=== PATIENT | male | born 1945 | race Two or more races ===

== ENCOUNTER → 2016-06-25 | Outpatient (CLI) | payer MEDICARE, OTHER ==
--- NOTE | 2016-06-25 17:30 | REP ---
LEFT LOWER EXTREMITY DOPPLER VENOUS ULTRASOUND: 06/25/2016. Clinical history: Left lower extremity pain. Evaluate for DVT. Comparison: None. Technique: The deep venous system of the left lower extremity is evaluated with villarreal scale imaging, compression ultrasound, color imaging and duplex Doppler interrogation. Examination from the groin through the popliteal fossa into the proximal calf. Findings: There is full compressibility from the common femoral vein in the inguinal region through the popliteal vein. Color imaging confirms patency throughout the course of the deep venous system. There is respiratory variation and augmented flow at all levels. Impression: 1. No Doppler venous ultrasound evidence of DVT in the left lower extremity. Signed by Juan Daniel James MD 06/25/2016 05:21 P
== END ==
LOC: M RAD 16:54
PROVIDERS: ATTEND Family Medicine
DX: M79.605 Pain in left leg (principal)

== ENCOUNTER → 2016-07-10 | Outpatient (REF) | payer MEDICARE, OTHER ==
[2016-07-10 11:04] LABS: BASO % 0.7 % (0.0-1.0); EOS # 0.1 K/mm3 (0.0-0.50); EOS % 2.4 % (0.0-3.0); LARGE UNSTAINED CELL # 0.2 K/mm3 (0.0-0.4); LARGE UNSTAINED CELL % 2.8 % (0.0-4.0); LYMPH # 1.9 K/mm3 (1.5-4.5); LYMPH % 32.4 % (24.0-44.0); MEAN CORPUSCULAR HEMOGLOBIN 30.3 pg (27.0-33.0); MEAN CORPUSCULAR HGB CONC 33.8 g/dl (32.0-36.5); MEAN CORPUSCULAR VOLUME 89.8 fl (80.0-96.0); MONO # 0.4 K/mm3 (0.0-0.8); MONO % 6.9 % (0.0-5.0); NEUTROPHILS # 2.9 K/mm3 (1.8-7.7); NEUTROPHILS % 54.7 % (36.0-66.0); PLATELET COUNT, AUTOMATED 195 k/mm3 (150-450); WHITE BLOOD COUNT 5.3 K/mm3 (4.0-10.0)
[2016-07-10 11:32] LABS: ALKALINE PHOSPHATASE 82 U/L (45-117); ALT/SGPT 33 U/L (12-78); ANION GAP 7 MEQ/L (8-16); AST/SGOT 19 U/L (15-37); BILIRUBIN,TOTAL 0.5 MG/DL (0.2-1.0); BLOOD UREA NITROGEN 30 MG/DL (7-18); CALCIUM LEVEL 8.5 MG/DL (8.8-10.2); CARBON DIOXIDE LEVEL 29 MEQ/L (21-32); CHLORIDE LEVEL 109 MEQ/L (98-107); CHOLESTEROL LEVEL 178 MG/DL (<200); CREATININE FOR GFR 0.91 MG/DL (0.70-1.30); GLOMERULAR FILTRATION RATE > 60.0 (>42); GLUCOSE, FASTING 120 MG/DL (83-110); POTASSIUM SERUM 4.5 MEQ/L (3.5-5.1); SODIUM LEVEL 145 MEQ/L (136-145); TRIGLYCERIDES LEVEL 212 MG/DL (<150)
[2016-07-10 11:33] LABS: ALBUMIN 3.5 GM/DL (3.2-5.2)
== END ==
LOC: M SFHCADAM 09:46
PROVIDERS: ATTEND Family Medicine
DX: Z12.11 Encounter for screening for malignant neoplasm of colon (principal); E66.9 Obesity, unspecified

== ENCOUNTER → 2016-10-27 | Outpatient (CLI) | payer MEDICARE, OTHER ==
[~2016-10-27] VITALS: Ht 180.3 cm; Wt 98.9 kg
[~2016-10-27] MED LIST: ALEV220C2 PO; ASPI81CH32 PO; LIDOCAINE 2% INJ 100 MG/5 ML SDV (FOR ANES.) As Ordered ONE; MULT1TAB10 PO; NS 1,000 ML IV ONE; PROPOFOL 500 MG/50 ML VIAL As Ordered ONE
--- NOTE | 2016-10-27 10:21 | ROOR ---
Patient Name: Rinku Syed Procedure Date: 10/27/2016 10:00 AM Date of : 1945 Age: 71 Room: [facility] Gender: Male Note Status: Finalized Procedure: Total Colonoscopy to Cecum Indications: Screening for colorectal malignant neoplasm, Last colonoscopy: 2002 Providers: Jaiden Gallagher MD Referring MD: Lissett Nunez DO Requesting Provider: Medicines: Monitored Anesthesia Care Complications: No immediate complications. Procedure: Pre-Anesthesia Assessment: - The heart rate, respiratory rate, oxygen saturations, blood pressure, adequacy of pulmonary ventilation, and response to care were monitored throughout the procedure. The Colonoscope was introduced through the anus and advanced to the cecum, identified by appendiceal orifice and ileocecal valve. The colonoscopy was performed without difficulty. The patient tolerated the procedure well. The quality of the bowel preparation was excellent. Findings: The perianal and digital rectal examinations were normal. Non-bleeding internal hemorrhoids were found during retroflexion. The hemorrhoids were small and Grade I (internal hemorrhoids that do not prolapse). Multiple small and large-mouthed diverticula were found in the recto-sigmoid colon, sigmoid colon and descending colon. The exam was otherwise without abnormality on direct and retroflexion views. Impression: - Non-bleeding internal hemorrhoids. - Diverticulosis in the recto-sigmoid colon, in the sigmoid colon and in the descending colon. - The examination was otherwise normal on direct and retroflexion views. - No specimens collected. - The exam was otherwise normal to the cecum. Recommendation: - Patient has a contact number available for emergencies. The signs and symptoms of potential delayed complications were discussed with the patient. Return to normal activities tomorrow. Written discharge instructions were provided to the patient. - High fiber diet. - Discharge patient to home. - Continue present medications. - Repeat colonoscopy for symptoms only. - Return to referring physician. - The findings and recommendations were discussed with the patient's family. Jaiden Gallagher MD Jaiden Gallagher MD 10/27/2016 10:20:41 AM This report has been signed electronically. Number of Addenda: 0 Note Initiated On: 10/27/2016 10:00 AM Estimated Blood Loss: Estimated blood loss: none.
[2016-10-27 10:55] VITALS: BP 115/63
== END | disposition home or self-care (01) ==
LOC: M OPP 08:53
PROVIDERS: ATTEND Internal Medicine Gastroenterology
DX: Z12.11 Encounter for screening for malignant neoplasm of colon (principal); K64.0 First degree hemorrhoids; K57.30 Diverticulosis of large intestine without perforation or abscess without bleeding; I38 Endocarditis, valve unspecified; M19.90 Unspecified osteoarthritis, unspecified site; M54.9 Dorsalgia, unspecified; R06.83 Snoring; G47.30 Sleep apnea, unspecified; Z85.46 Personal history of malignant neoplasm of prostate; Z79.82 Long term (current) use of aspirin; Z80.3 Family history of malignant neoplasm of breast

== ENCOUNTER → 2017-05-13 | Outpatient (REF) | payer MEDICARE, OTHER ==
[2017-05-13 14:50] LABS: BASO # 0.1 10^3/uL (0.0-0.2); BASO % 1.2 % (0.0-1.0); EOS # 0.1 10^3/uL (0.0-0.50); EOS % 2.3 % (0.0-3.0); HEMATOCRIT 45.8 % (42.0-52.0); HEMOGLOBIN 15.2 g/dl (14.0-18.0); IMMATURE GRANULOCYTE % 0.2 % (0-0); LYMPH # 1.5 10^3/uL (1.5-4.5); MEAN CORPUSCULAR HEMOGLOBIN 30.6 pg (27.0-33.0); MEAN CORPUSCULAR HGB CONC 33.2 g/dl (32.0-36.5); MEAN CORPUSCULAR VOLUME 92.3 fl (80.0-96.0); MONO # 0.5 10^3/uL (0.0-0.8); MONO % 9.4 % (0.0-5.0); NEUTROPHILS # 3.5 10^3/uL (1.8-7.7); NEUTROPHILS % 60.9 % (36.0-66.0); PLATELET COUNT, AUTOMATED 194 10^3/uL (150-450); RED BLOOD COUNT 4.96 10^6/uL (4.30-6.10); RED CELL DISTRIBUTION WIDTH 12.7 % (11.5-14.5); WHITE BLOOD COUNT 5.7 10^3/uL (4.0-10.0)
[2017-05-13 15:10] LABS: ALBUMIN 3.7 GM/DL (3.2-5.2); ALBUMIN/GLOBULIN RATIO 1.32 (1.00-1.93); ALKALINE PHOSPHATASE 91 U/L (45-117); ALT/SGPT 33 U/L (12-78); ANION GAP 5 MEQ/L (8-16); AST/SGOT 28 U/L (7-37); BILIRUBIN,TOTAL 0.5 MG/DL (0.2-1.0); BLOOD UREA NITROGEN 30 MG/DL (7-18); CALCIUM LEVEL 8.8 MG/DL (8.8-10.2); CARBON DIOXIDE LEVEL 31 MEQ/L (21-32); CHLORIDE LEVEL 110 MEQ/L (98-107); CREATININE FOR GFR 1.08 MG/DL (0.70-1.30); FREE T4 1.13 NG/DL (0.76-1.46); GLOMERULAR FILTRATION RATE > 60.0 (>42); GLUCOSE, FASTING 121 MG/DL (70-100); POTASSIUM SERUM 4.8 MEQ/L (3.5-5.1); SODIUM LEVEL 146 MEQ/L (136-145); THYROID STIMULATING HORMONE 0.782 uIU/ML (0.358-3.740); TOTAL PROTEIN 6.5 GM/DL (6.4-8.2)
[2017-05-13 15:54] LABS: ESTIMATED AVERAGE GLUCOSE 131 MG/DL (60-110); HEMOGLOBIN A1c 6.2 %
== END ==
LOC: M SFHCADAM 09:21
DX: R63.1 Polydipsia (principal); R42 Dizziness and giddiness; C61 Malignant neoplasm of prostate; Z79.899 Other long term (current) drug therapy
CPT/HCPCS: 84443

== ENCOUNTER → 2017-06-01 | Outpatient (CLI) | payer MEDICARE, OTHER | LOC: M RAD 17:07 | DX: I65.22 Occlusion and stenosis of left carotid artery (principal) | CPT/HCPCS: 93880 ==

== ENCOUNTER → 2018-02-01 | Outpatient (REF) | payer MEDICARE, OTHER ==
[2018-02-01 19:54] LABS: BASO # 0.1 10^3/uL (0.0-0.2); EOS # 0.1 10^3/uL (0.0-0.50); HEMATOCRIT 46.6 % (42.0-52.0); HEMOGLOBIN 15.4 g/dl (13.5-17.5); IMMATURE GRANULOCYTE % 0.2 % (0-3.0); LYMPH # 2.2 10^3/uL (1.5-4.5); LYMPH % 36.9 % (24.0-44.0); MEAN CORPUSCULAR HEMOGLOBIN 30.7 pg (27.0-33.0); MONO # 0.5 10^3/uL (0.0-0.8); MONO % 8.9 % (0.0-5.0); NEUTROPHILS # 3.1 10^3/uL (1.8-7.7); PLATELET COUNT, AUTOMATED 192 10^3/uL (150-450); RED BLOOD COUNT 5.01 10^6/uL (4.30-6.10); RED CELL DISTRIBUTION WIDTH 12.3 % (11.5-14.5); WHITE BLOOD COUNT 6.1 10^3/uL (4.0-10.0)
[2018-02-01 20:05] LABS: ALBUMIN 3.8 GM/DL (3.2-5.2); ALBUMIN/GLOBULIN RATIO 1.36 (1.00-1.93); ALKALINE PHOSPHATASE 80 U/L (45-117); ALT/SGPT 32 U/L (12-78); ANION GAP 7 MEQ/L (8-16); AST/SGOT 18 U/L (7-37); BILIRUBIN,TOTAL 0.6 MG/DL (0.2-1.0); BLOOD UREA NITROGEN 29 MG/DL (7-18); CALCIUM LEVEL 8.5 MG/DL (8.8-10.2); CARBON DIOXIDE LEVEL 28 MEQ/L (21-32); CHLORIDE LEVEL 109 MEQ/L (98-107); CREATININE FOR GFR 0.94 MG/DL (0.70-1.30); GLOMERULAR FILTRATION RATE > 60.0 (>42); GLUCOSE, FASTING 84 MG/DL (70-100); POTASSIUM SERUM 4.5 MEQ/L (3.5-5.1); SODIUM LEVEL 144 MEQ/L (136-145); TOTAL PROTEIN 6.6 GM/DL (6.4-8.2)
[2018-02-01 20:19] LABS: ESTIMATED AVERAGE GLUCOSE 117 MG/DL (60-110); HEMOGLOBIN A1c 5.7 %
== END ==
LOC: M SFHCADAM 15:43
DX: R53.83 Other fatigue (principal); R73.03 Prediabetes
CPT/HCPCS: 80053

== ENCOUNTER → 2018-03-12 | Outpatient (REF) | payer MEDICARE, OTHER | LOC: M LAB REF 13:26 | DX: N39.0 Urinary tract infection, site not specified (principal) | CPT/HCPCS: 87186 ==

== ENCOUNTER → 2018-04-25 | Outpatient (REF) | payer MEDICARE, OTHER ==
[~2018-04-25] MED LIST changes: -LIDOCAINE 2% INJ 100 MG/5 ML SDV (FOR ANES.) As Ordered ONE; -NS 1,000 ML IV ONE; -PROPOFOL 500 MG/50 ML VIAL As Ordered ONE
[2018-04-25 20:34] LABS: HEMOGLOBIN A1c 6.1 %
== END ==
LOC: M LABDRWAD 19:11
PROVIDERS: ATTEND Family Medicine
DX: R73.03 Prediabetes (principal)

== ENCOUNTER → 2018-05-20 | Outpatient (CLI) | payer MEDICARE, OTHER ==
--- NOTE | 2018-05-20 10:56 | REP ---
Clinical: Lower back pain. Technique: AP, lateral, bilateral oblique, flexion/extension and coned-down views of the lumbosacral spine. Findings: Advanced multilevel degenerative disc osteophyte complexes are appreciated including bulky bridging osteophytes, endplate sclerosis/heterogeneity, disc space narrowing and hypertrophic facet changes. No obvious acute fracture / compression injury. Mild chronic-appearing grade 1 anterolisthesis at the L5-S1 level noted. Impression: Advanced multilevel degenerative disc osteophyte complexes. Electronically Signed by Juma Cao MD 05/20/2018 10:47 A
== END ==
LOC: M ADAMS 10:27
PROVIDERS: ATTEND Family Medicine
DX: M51.36 Other intervertebral disc degeneration, lumbar region (principal); M25.78 Osteophyte, vertebrae; M43.17 Spondylolisthesis, lumbosacral region; M54.5 Low back pain
CPT/HCPCS: 72114; G0463

== ENCOUNTER → 2018-08-15 | Outpatient (REF) | payer MEDICARE, OTHER ==
[~2018-08-15] MED LIST changes: -ASPI81CH32 PO; +ASPI81CH33 PO
[2018-08-15 13:08] LABS: BLOOD UREA NITROGEN 37 MG/DL (7-18); CREATININE FOR GFR 0.88 MG/DL (0.70-1.30); GLOMERULAR FILTRATION RATE > 60.0 (>42)
== END ==
LOC: M LABDRWAD 12:17
PROVIDERS: ATTEND Physician Assistant Surgical
DX: M54.5 Low back pain (principal)

== ENCOUNTER → 2018-08-29 | Outpatient (CLI) | payer MEDICARE, OTHER ==
[2018-08-29 17:29] LABS: ALBUMIN 3.6 GM/DL (3.2-5.2); PERCENT SATURATION 38.2 % (19.7-50.0)
== END ==
LOC: M LAB 16:01
PROVIDERS: ATTEND Orthopaedic Surgery Adult Reconstructive Orthopaedic Surgery
DX: Z01.818 Encounter for other preprocedural examination (principal); M25.561 Pain in right knee; M17.11 Unilateral primary osteoarthritis, right knee; D63.8 Anemia in other chronic diseases classified elsewhere

== ENCOUNTER → 2018-11-11 | Outpatient (CLI) | payer MEDICARE, OTHER ==
--- NOTE | 2018-11-11 10:56 | REP ---
PA and lateral chest: Comparison is 07/29/2015. The lung wong are clear except for minor atelectasis in the lung bases. Cardiac size is normal. The marzena, mediastinum, skeletal structures are unchanged. The central marzena are enlarged, this is unchanged and may represent pulmonary hypertension. Impression: Minor bibasilar atelectasis. Chronic enlargement of the central marzena, possibly pulmonary hypertension, unchanged. Electronically Signed by Martin Kim MD 11/11/2018 10:48 A
== END ==
LOC: M ADAMS 10:25
PROVIDERS: ATTEND Family Medicine
DX: J98.11 Atelectasis (principal); R05 Cough
CPT/HCPCS: 71046; G0463

== ENCOUNTER → 2018-11-28 | Outpatient (REF) | payer MEDICARE, OTHER | LOC: M LAB REF 19:17 | PROVIDERS: ATTEND Physician Assistant | DX: N39.0 Urinary tract infection, site not specified (principal) ==

== ENCOUNTER → 2019-01-17 | Outpatient (REF) | payer MEDICARE, OTHER | LOC: M LAB REF 12:12 | PROVIDERS: ATTEND Physician Assistant Medical | DX: N39.0 Urinary tract infection, site not specified (principal) ==

== ENCOUNTER → 2019-01-20 | Outpatient (CLI) | payer MEDICARE, OTHER ==
--- NOTE | 2019-01-20 18:17 | REP ---
HISTORY: Hip pain. No trauma. COMPARISON: No priors. FINDINGS: The hip joint space is symmetric and relatively well maintained. There is no acute or destructive osseous lesion. Electronically Signed by Gino Guidry DO 01/23/2019 04:12 P
== END ==
LOC: M WUC 13:07
PROVIDERS: ATTEND Physician Assistant
DX: M25.552 Pain in left hip (principal)

== ENCOUNTER → 2019-05-03 | Outpatient (CLI) | payer MEDICARE, OTHER ==
--- NOTE | 2019-05-03 14:48 | REP ---
CHEST, TWO VIEWS: Comparison 11/11/2018. There are bibasilar fibrotic changes present without acute infiltrate. Heart is normal in size. There is calcification and tortuosity of the thoracic aorta. The mediastinal silhouette is unchanged. There are degenerative changes of the spine. IMPRESSION: No acute pulmonary disease. Electronically Signed by Martin Cota MD 05/03/2019 05:40 P
== END ==
LOC: M ADAMS 12:51
PROVIDERS: ATTEND Family Medicine
DX: R06.00 Dyspnea, unspecified (principal)
CPT/HCPCS: 71046; G0463

== ENCOUNTER → 2019-10-03 | Outpatient (CLI) | payer MEDICARE, OTHER ==
--- NOTE | 2019-10-03 16:44 | REP ---
REASON FOR EXAM: Constipation. Even though two views were obtained, not all of the abdomen and pelvis was included on this radiograph, which limits the exam. The imaged portions of the bowel loops show no gross abnormalities. There is no gross free air. The imaged portions of the bowel loops show the stool pattern to be within normal limits. Chronic changes are seen involving the imaged spine. IMPRESSION: As above. Electronically Signed by Gino Guidry DO 10/03/2019 05:05 P
== END ==
LOC: M ADAMS 15:59
PROVIDERS: ATTEND Physician Assistant
DX: K59.00 Constipation, unspecified (principal); R10.84 Generalized abdominal pain
CPT/HCPCS: 74018; G0463

== ENCOUNTER → 2019-10-17 | Outpatient (REF) | payer MEDICARE, OTHER | LOC: M LAB REF 17:13 | PROVIDERS: ATTEND Physician Assistant | DX: L57.0 Actinic keratosis (principal) | CPT/HCPCS: 11102; 17000; 17003; 88305; G0463 ==

== ENCOUNTER → 2020-03-19 | Outpatient (CLI) | payer MEDICARE, OTHER ==
--- NOTE | 2020-03-21 00:34 | ECWPNPC ---
PATIENT NAME: KAILA WALKER : 1945 GENDER: MALE VISIT DATE: 03/19/2020 DISCHARGE DATE: 03/19/20 1123 VISIT LOCKED DATE TIME: PHYSICIAN: NEO MORRISON PHYSICIAN PAGER NO: ACTIVE RESOURCE: NEO MORRISON REASON FOR APPOINTMENT 1. LOW BACK/HIP HISTORY OF PRESENT ILLNESS GENERAL: 74-YEAR-OLD GENTLEMAN REFERRED BY SOFI ADAN FOR EVALUATION AND CONSIDERATION OF RIGHT SACROILIAC JOINT INJECTION. HAS BEEN SUFFERING FROM RIGHT HIP/BUTTOCK PAIN OVER THE PAST 4-6 WEEKS. WAS DOING VERY WELL POST LUMBAR SURGERY DONE IN OCTOBER 2019. PAIN IS DECREASED AT REST. PAIN IS AGGRAVATED BY WALKING. PT WAS ORDERED BY [facility] OVER A MONTH AGO BUT PATIENT DID NOT COMPLETE THIS. DENIES CHANGES IN BOWEL OR BLADDER. DENIES BOWEL OR BLADDER INCONTINENCE. NO RECENT ILLNESS OR SUDDEN WEIGHT LOSS. - -. FALL RISK SCREENING: SCREENING :ONE FALL WITHOUT INJURY IN THE PAST YEAR PAIN SCREENING: PATIENT HAS A COMPLAINT OF ACUTE OR CHRONIC PAIN :YES LOCATION OF PAIN:LOW BACK, RIGHT HIP, LEG(S) INTENSITY OF PAIN (SCALE OF 1 TO 10):6 WHAT DOES YOUR PAIN FEEL LIKE:CONTINOUS, INTERMITTENT, SHOOTING RIGHT HIP PAIN IS WORSE WITH STANDING/WALKING DURATION:CONTINOUS PAIN IS INCREASED BY:ACTIVITIES, PROLONGED STANDING PAIN IS DECREASED BY:USE OF PAIN MEDICATIONS, OTHERS RESTING NURSING NOTE: - -. PAIN CENTER INTAKE QUESTIONS: DO YOU HAVE A HISTORY OF MRSA? :NO DO YOU TAKE A BLOOD THINNERS? :NO DO YOU HAVE ANY BLEEDING DISORDERS? :NO ANY NEW NUMBNESS OR WEAKNESS IN YOUR LEGS OR ARMS? :NO ANY PACEMAKER,DEFIBRILLATOR, OR DORSAL COLUMN STIMULATOR? :NO DO YOU HAVE ANY RASHES OR OPEN SORES? :NO ARE YOU ALLERGIC TO IV DYE? :NO ARE YOU DIABETIC? :NO ANY NEW PROBLEMS WITH YOUR MEDICATIONS? :NO HAVE YOU RECEIVED A VACCINE IN THE PAST 30 DAYS? :YES IF SO WHAT VACCINE AND WHEN? FLU VACCINE EARLY FEBRUARY DO YOU PLAN TO RECEIVE A VACCINE IN THE NEXT 21 DAYS? :NO DO YOU TAKE ANY IMMUNOSUPPRESSIVE MEDICATIONS? :NO ANY HISTORY OF SEIZURES? :NO ANY HISTORY OF CARDIAC ISSUES OR EVENTS? :NO DO YOU HAVE SLEEP APNEA? :YES DO YOU WEAR A CPAP?NO ANY RECENT HEAD INJURY? :NO DO YOU HAVE ANY NEW INFECTIONS? :NO IS THERE A CHANCE YOU COULD BE ? :NO ARE YOU BREAST FEEDING? :NO WHEN DID YOU LAST EAT? : - WHEN DID YOU LAST DRINK? : - WHAT DID YOU LAST DRINK? : - NAME OF PERSON DRIVING YOU HOME? : - DO YOU HAVE ANY OTHER QUESTIONS OR CONCERNS? : - CURRENT MEDICATIONS TAKING MULTIVITAMIN MEN - TABLET 1 TAB ORALLY DAILY TAKING TYLENOL 8 HOUR 650 MG TABLET EXTENDED RELEASE 1TABLETS NEEDED ORALLY EVERY 8 HRS TAKING MELOXICAM 15 MG TABLET TAKE ONE TABLET BY MOUTH EVERY DAY WITH FOOD ORAL TAKING MAGNESIUM CITRATE 1.745 GM/30ML SOLUTION 150 ML ORALLY ONCE TAKING ASPIRIN 81 81 MG TABLET DELAYED RELEASE 1 TABLET ORALLY ONCE A DAY NOT-TAKING ASPIRIN 81 MG TABLET CHEWABLE 1 TABLET ORALLY TWICE DAILY NOT-TAKING MAY HAVE - - CBD ORALLY 6 DAILY NOT-TAKING ALEVE 220 MG TABLET 1 TABLET NEEDED ORALLY BEDTIME MEDICATION LIST REVIEWED AND RECONCILED WITH THE PATIENT PAST MEDICAL HISTORY CARPAL TUNNEL SYNDROME PROSTATE CANCER, S/P PROSTATECTOMY, NOT TREATED WITH MEDICATION AUDRA, NOT REGULARLY USING CPAP ECHO WITH MILDLY DILATED AORTIC ROOT, MILD-MODERATE AORTIC INSUFFICIENCY, VERY MILD MITRAL INSUFFICIENCY, BORDERLINE LVH, IMPAIRED DIASTOLIC DYSFUNCTION, MILD PULMONARY HTN; WORSENING LV WALL THICKNESS AND DIASTOLIC DYSFUNCTION COLONOSCOPY WITH INTERNAL HEMORRHOIDS AND DIVERTICULOSIS (10/2016) -- CHATO CAROTID US WITH 16-49% NARROWING BILAT (05/2017) ALLERGIES N.K.D.A. SURGICAL HISTORY HERNIA X 7 ARTHROSCOPY ON RIGHT KNEE X 2 HERNIATED DISC LUMBAR BACK SURGERY LEFT LIGAMENT ON LEFT PINKY FINGER PROSTATE CANCER-PROSTATECTOMY 2006 RIGHT ROTATOR CUFF SURGERY CARPAL TUNNEL TRIGGER FINGER 3-17 COLONOSCOPY SHOWING DIVERTICULOSIS AND HEMORRHOIDS 10/2016 R KNEE REPLACEMENT 09-19-19 L1-2, L2-3 LAMINECTOMY (DR. CHO) 10/27/2019 FAMILY HISTORY FATHER: , IN HIS SLEEP MOTHER: , ALZHEIMER'S, PNEUMONIA SIBLINGS: ALIVE, OLDEST BROTHER WITH PARKINSON'S, BROTHER WITH NECK SURGERY, SISTER WITH ANKLE FRACTURE SON(S): ALIVE, DIAGNOSED WITH HYPERTENSION DAUGHTER(S): ALIVE 3 BROTHER(S) , 1 SISTER(S) - HEALTHY. 1 SON(S) , 1 DAUGHTER(S) - HEALTHY. DENIES FAMILY HX OF SKIN CANCER AND MELANOMA. SOCIAL HISTORY GENERAL: TOBACCO USE ARE YOU A:NONSMOKER LATEX QUESTIONNAIRE LATEX ALLERGY : HAVE YOU EVER DEVELOPED ANY TYPE OF REACTION AFTER HANDLING LATEX PRODUCTS SUCH RUBBER GLOVES, CONDOMS, DIAPHRAGMS, BALLOONS, SOCKS, OR UNDERWEAR?NO LATEX ALLERGY : HAVE YOU EVER DEVELOPED ANY TYPE OF REACTION DURING OR AFTER DENTAL APPOINTMENT, VAGINAL/RECTAL EXAMINATION, SURGICAL PROCEDURE, OR ANY OTHER EXPOSURE?NO LATEX RISK : HAVE YOU EVER HAD ANY DIFFICULTY BREATHING OR HIVES AFTER EATING OR HANDLING ANY FRUITS, OR VEGETABLES; SUCH KIWI, BANANAS, STONE FRUITS, OR CHESTNUTSNO LATEX RISK : DO YOU HAVE A PREVIOUS PERSONAL HISTORY OF MORE THAN NINE SURGERIES, SPINA BIFIDA, OR REPEATED CATHERIZATIONS? NO LATEX RISK : ARE YOU FREQUENTLY EXPOSED TO LATEX PRODUCTS IN YOUR OCCUPATION?NO DATE ASKED : 03/18/2020 BMI CARE GOAL FOLLOW-UP ABOVE NORMAL BMI FOLLOW-UPGIVING ENCOURAGEMENT TO EXERCISE ALCOHOL SCREENING DID YOU HAVE A DRINK CONTAINING ALCOHOL IN THE PAST YEAR?YES HOW MANY DRINKS DID YOU HAVE ON A TYPICAL DAY WHEN YOU WERE DRINKING IN THE PAST YEAR?1 OR 2 (0 POINTS) HOW OFTEN DID YOU HAVE A DRINK CONTAINING ALCOHOL IN THE PAST YEAR?MONTHLY OR LESS (1 POINT) POINTS1 INTERPRETATIONNEGATIVE RECREATIONAL DRUG USE DRUG USE?NO CAFFEINE CAFFEINE USE?NO SEXUAL HX HAD SEX IN THE LAST 12 MONTHS (VAGINAL, ORAL, OR ANAL)?NO HIV / HEP-C SCREENING HIV TEST OFFERED TO PATIENT:YES DATE OFFERED:07/12/2017 TEST ACCEPTED:NO HEP-C TEST OFFERED TO PATIENT:NO REASON:PATIENT DECLINED BROCHURE PROVIDED TO PATIENTNO EVANGELICAL NO JEW BELIEFS THAT WOULD IMPACT HEALTH CARE. LANGUAGE LANGUAGES SPOKEN:[employer]. LEARNING BARRIERS / SPECIAL NEEDS CHANGE FROM LAST VISIT?NO BARRIERS TO LEARNING?NO HEARING IMPAIRED?NO VISION IMPAIRED?YES :CORRECTIVE LENSES COGNITIVELY IMPAIRED?NO READINESS TO LEARN?YES LEARNING PREFERENCES?NO LEARNING CAPABILITIES PRESENT?YES EMOTIONAL BARRIERS?NO SPECIAL DEVICES?NO HEALTHCARE RISK CONTROL CONSULTANT NEEDED?NO DOMESTIC VIOLENCE NONE. 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 DIET: REGULAR. EXERCISE: WALKS. MARITAL STATUS: . OTHERS AT HOME: SIGNIFICANT OTHER. PAIN CLINIC PFS, CLERGY, PUBLIC HEALTH REFERRALS HAS THE PATIENT BEEN EDUCATED REGARDING HIS/HER PLAN OF CARE?YES HAS THE PATIENT BEEN EDUCATED REGARDING PAIN, THE RISK FOR PAIN, THE IMPORTANCE OF EFFECTIVE PAIN MANAGEMENT, AND THE PAIN ASSESSMENT PROCESS?YES ADVANCE DIRECTIVE ADVANCE DIRECTIVE DISCUSSED WITH PATIENT: HAS HCP AT HOME. INSTRUCTED TO BRING IN TO PAIN CENTER TO BE SCANNED IN. HOSPITALIZATION/MAJOR DIAGNOSTIC PROCEDURE SURGERY RELATED KNEE REPLACEMENT 10/05 REVIEW OF SYSTEMS CONSTITUTIONAL: ANY RECENT FEVER NO . CHILLS NO . WEIGHT CHANGE OF UNKNOWN REASONS NO . GASTROENTEROLOGY: NEW UNEXPLAINABLE CHANGES IN BOWEL CONTROL NO . CONSTIPATION NO . GENITOURINARY: ANY NEW CHANGE IN BLADDER CONTROL? NO . NEUROLOGY: NEW ONSET DIZZINESS OR NEUROLOGICAL CHANGES NOT MENTIONED NO . NEW NUMBNESS OR PAIN PATTERNS NOT MENTIONED AND PERTINENT TO TODAY'S VISIT NO . CARDIOLOGY: NEW CHEST PRESSURE NO . NEW CHEST PAIN NO . RESPIRATORY: UNEXPLAINABLE COUGH NO . NEW SHORTNESS OF BREATH NO . VITAL SIGNS WT 243.0 LBS, HT 71 IN, BMI 33.89 INDEX, BP 159/76 MM HG, HR 100 /MIN, TEMP 9\7.0, OXYGEN SAT % 94%, SAFE IN ENV? (Y/N) Y, NA INITIALS AW 1037, REVIEWED BY: VALDEZ. EXAMINATION GENERAL EXAMINATION: GENERAL ALERT,NO DISTRESS . PSYCH AFFECT NORMAL . FACE:UNREMARKABLE. NECK:NO LYMPHADENOPATHY, SUPPLE, . LUNGS: LUNG SOUNDS ARE CLEAR . HEART: HEART RATE REGULAR . MUSCULOSKELETAL: MST 5/5 BILAT. LOWER EXTREMITIES . LUMBAR: TENDERNESS BILAT. SIJ . ASSESSMENTS SACROILIITIS - M46.1 (PRIMARY) TREATMENT SACROILIITIS NOTES: DISCUSSED TREATMENT OPTIONS TO INCLUDE SACROILIAC JOINT BLOCK AND PHYSICAL THERAPY. POTENTIAL RISKS AND BENEFITS OF SACROILIAC JOINT BLOCK WERE REVIEWED. PATIENT WOULD LIKE TO TRY PHYSICAL THERAPY FIRST. PATIENT WILL SIGN RECORDS RELEASE TO OBTAIN MRI OF LS SPINE. FOLLOW-UP AT PAIN CLINIC IN 6-8 WEEKS. REFERRAL TO:PHYSICAL THERAPIST REASON:2XWK X 6 WKS, RIGHT SACROILIITIS/EVALUATE AND TREAT PROCEDURE CODES FA211 ESTABILISHED PATIENT [facility] CHARGE DISPOSITION & COMMUNICATION FOLLOW UP 6 WEEKS (REASON: FOLLOW-UP PHYSICAL THERAPY, REVIEW MRI L/S SPINE) ELECTRONICALLY SIGNED BY PRIYA GRACE ON 03/20/2020 AT 01:22 PM EST DISCLAIMER : THIS IS A VISIT SUMMARY EXTRACTED FROM THE [employer] CHART. IT IS NOT A COPY OF THE [employer] PROGRESS NOTE. ANGELI
== END ==
LOC: M PAIN 10:30
PROVIDERS: ATTEND Nurse Practitioner Family
DX: M46.1 Sacroiliitis, not elsewhere classified (principal); G47.33 Obstructive sleep apnea (adult) (pediatric); Z85.46 Personal history of malignant neoplasm of prostate; Z79.1 Long term (current) use of non-steroidal anti-inflammatories (NSAID); Z79.899 Other long term (current) drug therapy

== ENCOUNTER → 2020-03-20 | Outpatient (CLI) | payer MEDICARE, OTHER ==
--- NOTE | 2020-03-20 16:00 | REP ---
INDICATION: DYSPNEA. COMPARISON: 05/03/2019 TECHNIQUE: PA and lateral views FINDINGS: The superior mediastinal structures are midline. The cardiac silhouette is unremarkable in size, shape, and position. The diaphragmatic surfaces of the lungs are regular, and the costophrenic angles are clear. There are mild basilar fibrotic changes status ".. The imaged osseous structures are intact. IMPRESSION: There is no acute cardiopulmonary disease. <Electronically signed by Gino Guidry > 03/20/20 [id number]
[2020-03-21 11:44] LABS: BASO # 0.1 10^3/uL (0.0-0.2); EOS # 0.2 10^3/uL (0.0-0.5); EOS % 3.4 % (0.0-3.0); HEMATOCRIT 48.2 % (42.0-52.0); HEMOGLOBIN 15.7 g/dl (13.5-17.5); LYMPH # 2.5 10^3/uL (1.5-5.0); LYMPH % 39.5 % (24.0-44.0); MEAN CORPUSCULAR HEMOGLOBIN 29.8 pg (27.0-33.0); MEAN CORPUSCULAR HGB CONC 32.6 g/dl (32.0-36.5); MEAN CORPUSCULAR VOLUME 91.5 fl (80.0-96.0); MONO # 0.6 10^3/uL (0.0-0.8); MONO % 9.9 % (0.0-5.0); NEUTROPHILS # 2.9 10^3/uL (1.5-8.5); PLATELET COUNT, AUTOMATED 215 10^3/uL (150-450); RED BLOOD COUNT 5.27 10^6/uL (4.30-6.10); WHITE BLOOD COUNT 6.3 10^3/uL (4.0-10.0)
[2020-03-21 12:26] LABS: ALBUMIN 3.9 GM/DL (3.2-5.2); ALT/SGPT 35 U/L (12-78); BILIRUBIN,TOTAL 0.6 MG/DL (0.2-1.0); BLOOD UREA NITROGEN 38 MG/DL (7-18); CALCIUM LEVEL 9.2 MG/DL (8.8-10.2); CARBON DIOXIDE LEVEL 27 MEQ/L (21-32); CHLORIDE LEVEL 108 MEQ/L (98-107); CREATININE FOR GFR 1.05 MG/DL (0.70-1.30); GLOMERULAR FILTRATION RATE > 60.0 (>42); GLUCOSE, FASTING 132 MG/DL (70-100); NT-PRO BNP 40 PG/ML (<450); POTASSIUM SERUM 5.1 MEQ/L (3.5-5.1); SODIUM LEVEL 141 MEQ/L (136-145); TOTAL PROTEIN 6.8 GM/DL (6.4-8.2)
== END ==
LOC: M ADAMS 15:40
PROVIDERS: ATTEND Family Medicine
DX: R06.00 Dyspnea, unspecified (principal)
CPT/HCPCS: 36415; 71046; 80053; 83880; 85025; G0463

== ENCOUNTER → 2020-03-25 | Outpatient (CLI) | payer SELFPAY | LOC: M LABSMTC 17:19 | PROVIDERS: ATTEND Pediatrics | DX: Z20.828 Contact with and (suspected) exposure to other viral communicable diseases (principal) ==

== ENCOUNTER → 2020-03-28 | Outpatient (CLI) | payer MEDICARE, OTHER ==
[~2020-03-28] MED LIST changes: +ISOVUE-370 76% 100ML VIAL As Ordered ONE
--- NOTE | 2020-03-28 16:01 | REP ---
INDICATION: DYSPNEA. COMPARISON: None. TECHNIQUE: Contrast dose: 75 ML of Isovue [address] technique: Helical scanning is acquired and overlapping 1.5 mm and contiguous 3 mm axial images are reformatted. In addition, maximum intensity projection and multiplanar re-formation images are generated in sagittal and coronal imaging projections. FINDINGS: There is good opacification in the pulmonary arterial tree. There is no evidence of vessel cut off or filling defect to suggest pulmonary embolus. Homogeneous opacity is seen in the thoracic aorta. There is no evidence of aneurysm or dissection. Lung window settings demonstrate no evidence of infiltrate, significant atelectasis, mass, or pulmonary nodule. No pleural or pericardial effusion is seen. No hilar or mediastinal mass or adenopathy is observed. Vascular calcification is noted. The thoracic aorta is quite tortuous. In the upper abdomen, there is a 6.6 cm cyst in the upper pole of the right kidney. Visualized upper abdominal structures are otherwise unremarkable. IMPRESSION: No CT evidence of pulmonary embolus. Upper pole cyst right kidney. Otherwise no acute disease. <Electronically signed by Zain Mcfadden > 03/28/20 [id number]
== END ==
LOC: M RAD 15:19
PROVIDERS: ATTEND Family Medicine
DX: R06.00 Dyspnea, unspecified (principal); N28.1 Cyst of kidney, acquired
CPT/HCPCS: 71275; G0463; Q9967

== ENCOUNTER → 2020-04-30 | Outpatient (CLI) | payer MEDICARE, OTHER ==
[~2020-04-30] MED LIST changes: -ISOVUE-370 76% 100ML VIAL As Ordered ONE
--- NOTE | 2020-05-02 05:44 | ECWPNPC ---
PATIENT NAME: KAILA WALKER : 1945 GENDER: MALE VISIT DATE: 04/30/2020 DISCHARGE DATE: 04/30/20 1014 VISIT LOCKED DATE TIME: PHYSICIAN: NEO MORRISON PHYSICIAN PAGER NO: ACTIVE RESOURCE: NEO MORRISON REASON FOR APPOINTMENT 1. LOW BACK/HIP HISTORY OF PRESENT ILLNESS DEPRESSION SCREENING: PHQ-2 (2015 EDITION) LITTLE INTEREST OR PLEASURE IN DOING THINGS?SEVERAL DAYS FEELING DOWN, DEPRESSED, OR HOPELESS?NOT AT ALL TOTAL SCORE1 GENERAL: HERE FOR FOLLOW-UP AFTER INITIAL EVALUATION A FEW MONTHS AGO. IS ATTENDING PHYSICAL THERAPY. CONTINUES TO DO WELL WITH HOME STRETCHING AND PHYSICAL THERAPY. PAIN HAS IMPROVED SINCE INITIAL VISIT. HISTORY OF PAIN POST LUMBAR SURGERY IN OCTOBER 2019. HE IS NOT IN NEED OF INJECTIONS WE THOUGHT HE MAY NEED A SACROILIAC JOINT INJECTION- IF HE DID NOT RESPOND TO PHYSICAL THERAPY. OVERALL DOING VERY WELL. FALL RISK SCREENING: SCREENING :NO FALLS REPORTED IN THE LAST YEAR PAIN SCREENING: PATIENT HAS A COMPLAINT OF ACUTE OR CHRONIC PAIN :YES LOCATION OF PAIN:LOW BACK INTENSITY OF PAIN (SCALE OF 1 TO 10):2 WHAT DOES YOUR PAIN FEEL LIKE:SHOOTING DURATION:PERIODIC PAIN IS INCREASED BY:PROLONGED STANDING, OTHERS WALKING PAIN IS DECREASED BY:SITTING, OTHERS LAYING DOWN, HEATING PACK NURSING NOTE: -. PAIN CENTER INTAKE QUESTIONS: DO YOU HAVE A HISTORY OF MRSA? :YES 7 YEARS AGO DO YOU TAKE A BLOOD THINNERS? :NO DO YOU HAVE ANY BLEEDING DISORDERS? :NO ANY NEW NUMBNESS OR WEAKNESS IN YOUR LEGS OR ARMS? :YES DOWN RIGHT LEG ANY PACEMAKER,DEFIBRILLATOR, OR DORSAL COLUMN STIMULATOR? :NO DO YOU HAVE ANY RASHES OR OPEN SORES? :NO ARE YOU ALLERGIC TO IV DYE? :NO ARE YOU DIABETIC? :NO ANY NEW PROBLEMS WITH YOUR MEDICATIONS? :NO HAVE YOU RECEIVED A VACCINE IN THE PAST 30 DAYS? :NO DO YOU PLAN TO RECEIVE A VACCINE IN THE NEXT 21 DAYS? :YES IF SO WHAT VACCINE AND WHEN? COVID DO YOU NEED ANY PRESCRIPTION? :NO DO YOU TAKE ANY IMMUNOSUPPRESSIVE MEDICATIONS? :NO IS THERE A CHANCE YOU COULD BE ? :NO ARE YOU BREAST FEEDING? :NO CURRENT MEDICATIONS TAKING MULTIVITAMIN MEN - TABLET 1 TAB ORALLY DAILY TAKING TYLENOL 8 HOUR 650 MG TABLET EXTENDED RELEASE 1TABLETS NEEDED ORALLY EVERY 8 HRS, NOTES: NEEDED TAKING MELOXICAM 15 MG TABLET TAKE ONE TABLET BY MOUTH EVERY DAY WITH FOOD ORAL TAKING ASPIRIN 81 81 MG TABLET DELAYED RELEASE 1 TABLET ORALLY ONCE A DAY NOT-TAKING MAGNESIUM CITRATE 1.745 GM/30ML SOLUTION 150 ML ORALLY ONCE NOT-TAKING ASPIRIN 81 MG TABLET CHEWABLE 1 TABLET ORALLY TWICE DAILY NOT-TAKING MAY HAVE - - CBD ORALLY 6 DAILY NOT-TAKING ALEVE 220 MG TABLET 1 TABLET NEEDED ORALLY BEDTIME MEDICATION LIST REVIEWED AND RECONCILED WITH THE PATIENT PAST MEDICAL HISTORY CARPAL TUNNEL SYNDROME PROSTATE CANCER, S/P PROSTATECTOMY, NOT TREATED WITH MEDICATION AUDRA, NOT REGULARLY USING CPAP ECHO WITH MILDLY DILATED AORTIC ROOT, MILD-MODERATE AORTIC INSUFFICIENCY, VERY MILD MITRAL INSUFFICIENCY, BORDERLINE LVH, IMPAIRED DIASTOLIC DYSFUNCTION, MILD PULMONARY HTN; WORSENING LV WALL THICKNESS AND DIASTOLIC DYSFUNCTION COLONOSCOPY WITH INTERNAL HEMORRHOIDS AND DIVERTICULOSIS (10/2016) -- CHATO CAROTID US WITH 16-49% NARROWING BILAT (05/2017) ALLERGIES N.K.D.A. SURGICAL HISTORY HERNIA X 7 ARTHROSCOPY ON RIGHT KNEE X 2 HERNIATED DISC LUMBAR BACK SURGERY LEFT LIGAMENT ON LEFT PINKY FINGER PROSTATE CANCER-PROSTATECTOMY 2006 RIGHT ROTATOR CUFF SURGERY CARPAL TUNNEL TRIGGER FINGER 3-17 COLONOSCOPY SHOWING DIVERTICULOSIS AND HEMORRHOIDS 10/2016 R KNEE REPLACEMENT 09-19-19 L1-2, L2-3 LAMINECTOMY (DR. CHO) 10/27/2019 FAMILY HISTORY FATHER: , IN HIS SLEEP MOTHER: , ALZHEIMER'S, PNEUMONIA SIBLINGS: ALIVE, OLDEST BROTHER WITH PARKINSON'S, BROTHER WITH NECK SURGERY, SISTER WITH ANKLE FRACTURE SON(S): ALIVE, DIAGNOSED WITH HYPERTENSION DAUGHTER(S): ALIVE 3 BROTHER(S) , 1 SISTER(S) - HEALTHY. 1 SON(S) , 1 DAUGHTER(S) - HEALTHY. DENIES FAMILY HX OF SKIN CANCER AND MELANOMA. SOCIAL HISTORY GENERAL: TOBACCO USE ARE YOU A:NONSMOKER LATEX QUESTIONNAIRE LATEX ALLERGY : HAVE YOU EVER DEVELOPED ANY TYPE OF REACTION AFTER HANDLING LATEX PRODUCTS SUCH RUBBER GLOVES, CONDOMS, DIAPHRAGMS, BALLOONS, SOCKS, OR UNDERWEAR?NO LATEX ALLERGY : HAVE YOU EVER DEVELOPED ANY TYPE OF REACTION DURING OR AFTER DENTAL APPOINTMENT, VAGINAL/RECTAL EXAMINATION, SURGICAL PROCEDURE, OR ANY OTHER EXPOSURE?NO LATEX RISK : HAVE YOU EVER HAD ANY DIFFICULTY BREATHING OR HIVES AFTER EATING OR HANDLING ANY FRUITS, OR VEGETABLES; SUCH KIWI, BANANAS, STONE FRUITS, OR CHESTNUTSNO LATEX RISK : DO YOU HAVE A PREVIOUS PERSONAL HISTORY OF MORE THAN NINE SURGERIES, SPINA BIFIDA, OR REPEATED CATHERIZATIONS? NO LATEX RISK : ARE YOU FREQUENTLY EXPOSED TO LATEX PRODUCTS IN YOUR OCCUPATION?NO DATE ASKED : 04/30/2020 BMI CARE GOAL FOLLOW-UP ABOVE NORMAL BMI FOLLOW-UPGIVING ENCOURAGEMENT TO EXERCISE ALCOHOL SCREENING DID YOU HAVE A DRINK CONTAINING ALCOHOL IN THE PAST YEAR?YES HOW MANY DRINKS DID YOU HAVE ON A TYPICAL DAY WHEN YOU WERE DRINKING IN THE PAST YEAR?1 OR 2 (0 POINTS) HOW OFTEN DID YOU HAVE A DRINK CONTAINING ALCOHOL IN THE PAST YEAR?MONTHLY OR LESS (1 POINT) POINTS1 INTERPRETATIONNEGATIVE RECREATIONAL DRUG USE DRUG USE?NO CAFFEINE CAFFEINE USE?NO SEXUAL HX HAD SEX IN THE LAST 12 MONTHS (VAGINAL, ORAL, OR ANAL)?NO HIV / HEP-C SCREENING HIV TEST OFFERED TO PATIENT:YES DATE OFFERED:07/12/2017 TEST ACCEPTED:NO HEP-C TEST OFFERED TO PATIENT:NO REASON:PATIENT DECLINED BROCHURE PROVIDED TO PATIENTNO ZOROASTRIANISM NO ORTHODOXY BELIEFS THAT WOULD IMPACT HEALTH CARE. LANGUAGE LANGUAGES SPOKEN:[employer] EDUCATION [employer]. LEARNING BARRIERS / SPECIAL NEEDS CHANGE FROM LAST VISIT?NO BARRIERS TO LEARNING?NO HEARING IMPAIRED?NO VISION IMPAIRED?YES :CORRECTIVE LENSES COGNITIVELY IMPAIRED?NO READINESS TO LEARN?YES LEARNING PREFERENCES?NO LEARNING CAPABILITIES PRESENT?YES EMOTIONAL BARRIERS?NO SPECIAL DEVICES?NO PATHOLOGY TECH NEEDED?NO DOMESTIC VIOLENCE NONE. 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 DIET: REGULAR. EXERCISE: WALKS. MARITAL STATUS: . OTHERS AT HOME: SIGNIFICANT OTHER. PAIN CLINIC PFS, CLERGY, PUBLIC HEALTH REFERRALS HAS THE PATIENT BEEN EDUCATED REGARDING HIS/HER PLAN OF CARE?YES HAS THE PATIENT BEEN EDUCATED REGARDING PAIN, THE RISK FOR PAIN, THE IMPORTANCE OF EFFECTIVE PAIN MANAGEMENT, AND THE PAIN ASSESSMENT PROCESS?YES ADVANCE DIRECTIVE ADVANCE DIRECTIVE DISCUSSED WITH PATIENT: HAS HCP AT HOME. INSTRUCTED TO BRING IN TO PAIN CENTER TO BE SCANNED IN. HOSPITALIZATION/MAJOR DIAGNOSTIC PROCEDURE SURGERY RELATED KNEE REPLACEMENT 10/05 REVIEW OF SYSTEMS CONSTITUTIONAL: ANY RECENT FEVER NO . CHILLS NO . WEIGHT CHANGE OF UNKNOWN REASONS NO . GASTROENTEROLOGY: NEW UNEXPLAINABLE CHANGES IN BOWEL CONTROL NO . CONSTIPATION NO . GENITOURINARY: ANY NEW CHANGE IN BLADDER CONTROL? NO . NEUROLOGY: NEW ONSET DIZZINESS OR NEUROLOGICAL CHANGES NOT MENTIONED NO . NEW NUMBNESS OR PAIN PATTERNS NOT MENTIONED AND PERTINENT TO TODAY'S VISIT NO . CARDIOLOGY: NEW CHEST PRESSURE NO . NEW CHEST PAIN NO . RESPIRATORY: UNEXPLAINABLE COUGH NO . NEW SHORTNESS OF BREATH NO . VITAL SIGNS WT 247 LBS, HT 71 IN, BMI 34.45 INDEX, BP 140/75 MM HG, HR 94 /MIN, RR 18 /MIN, TEMP 96.6 F, OXYGEN SAT % 92, SAFE IN ENV? (Y/N) YES, NA INITIALS ANJUM.MIN BYRNE. EXAMINATION GENERAL EXAMINATION: GENERALAWAKE,ALERT ,PLEASANT . PSYCHAFFECT NORMAL . LUNGS:LUNG SEGAL ARE CLEAR TO AUSCULTATION BILATERALLY. GOOD MOVEMENT OF AIR . HEART:S1, S2 IN A REGULAR RATE AND RHYTHM. NO SIGNIFICANT MURMURS, RUBS OR GALLOPS NOTED . ASSESSMENTS SACROILIITIS - M46.1 (PRIMARY) TREATMENT SACROILIITIS NOTES: CONTINUE PHYSICAL THERAPY AND HOME STRETCHING EXERCISES. PATIENT WILL CALL IF NECESSARY FOR FOLLOW-UP. PROCEDURE CODES FA211 ESTABILISHED PATIENT [facility] CHARGE DISPOSITION & COMMUNICATION FOLLOW UP PATIENT WILL CALL IF NEEDED (REASON: LOW BACK PAIN WITH HISTORY OF IMPROVEMENT WITH PHYSICAL THERAPY. HISTORY OF LUMBAR SURGERY 11/06/2019) ELECTRONICALLY SIGNED BY PRIYA GRACE ON 05/01/2020 AT 02:20 PM EST DISCLAIMER : THIS IS A VISIT SUMMARY EXTRACTED FROM THE [employer] CHART. IT IS NOT A COPY OF THE [employer] PROGRESS NOTE. ANGELI
== END ==
LOC: M PAIN 09:30
PROVIDERS: ATTEND Nurse Practitioner Family
DX: M46.1 Sacroiliitis, not elsewhere classified (principal); G47.33 Obstructive sleep apnea (adult) (pediatric); Z86.14 Personal history of Methicillin resistant Staphylococcus aureus infection; Z96.651 Presence of right artificial knee joint; Z79.82 Long term (current) use of aspirin; Z79.899 Other long term (current) drug therapy

== ENCOUNTER 2020-08-05 17:57 | Emergency (ER) | payer MEDICARE, OTHER ==
[~2020-08-05] VITALS: Ht 175.3 cm; Wt 107.7 kg
[2020-08-05] MEDS ORDERED: MELO15TA28 (18:06)
--- NOTE | 2020-08-05 18:41 | REP ---
INDICATION: CHEST PAIN COMPARISON: 03/20/2020 TECHNIQUE: Portable AP view of the chest FINDINGS: The mediastinum and cardiac silhouette are stable and within normal limits for portable technique. The lung wong demonstrate chronic interstitial changes and chronic linear left basilar fibroatelectatic changes. No acute consolidation, effusion, or pneumothorax. Skeletal structures are intact. IMPRESSION: Chronic changes. No acute cardiopulmonary process appreciated. <Electronically signed by Juma Cao > 08/05/20 [id number]
[2020-08-05 18:52] LABS: BASO # 0.1 10^3/uL (0.0-0.2); BASO % 0.8 % (0.0-1.0); EOS % 0.6 % (0.0-3.0); HEMATOCRIT 45.6 % (42.0-52.0); HEMOGLOBIN 15.2 g/dl (13.5-17.5); LYMPH # 1.2 10^3/uL (1.5-5.0); LYMPH % 18.7 % (24.0-44.0); MEAN CORPUSCULAR HEMOGLOBIN 30.3 pg (27.0-33.0); MEAN CORPUSCULAR HGB CONC 33.3 g/dl (32.0-36.5); MONO # 0.6 10^3/uL (0.0-0.8); MONO % 8.8 % (2.0-8.0); NEUTROPHILS # 4.7 10^3/uL (1.5-8.5); NEUTROPHILS % 70.6 % (36.0-66.0); PLATELET COUNT, AUTOMATED 176 10^3/uL (150-450); RED BLOOD COUNT 5.01 10^6/uL (4.30-6.10); WHITE BLOOD COUNT 6.6 10^3/uL (4.0-10.0)
[2020-08-05 19:03] LABS: INR 1.04; PROTHROMBIN TIME 13.8 SECONDS (12.5-14.3)
[2020-08-05 19:24] LABS: ALBUMIN 3.8 GM/DL (3.2-5.2); ALT/SGPT 33 U/L (12-78); BILIRUBIN,DIRECT 0.3 MG/DL (0.0-0.2); BILIRUBIN,TOTAL 0.7 MG/DL (0.2-1.0); BLOOD UREA NITROGEN 34 MG/DL (7-18); CALCIUM LEVEL 9.4 MG/DL (8.8-10.2); CARBON DIOXIDE LEVEL 24 MEQ/L (21-32); CHLORIDE LEVEL 108 MEQ/L (98-107); CK-MB VALUE MASS 1.7 NG/ML (<3.6); CPK CREATINE PHOSPHOKINASE 123 U/L (39-308); CREATININE FOR GFR 0.82 MG/DL (0.70-1.30); FREE T4 1.14 NG/DL (0.76-1.46); GLOMERULAR FILTRATION RATE > 60.0 (>42); GLUCOSE, FASTING 107 MG/DL (70-100); LIPASE 98 U/L (73-393); MB/CK RELATIVE INDEX 1.38 (< OR =4); SODIUM LEVEL 141 MEQ/L (136-145); THYROID STIMULATING HORMONE 0.814 uIU/ML (0.358-3.740); TOTAL PROTEIN 6.6 GM/DL (6.4-8.2); TROPONIN I < 0.02 NG/ML (< 0.10)
[2020-08-05] MEDS ORDERED: NITROGLYCERIN 0.4 MG SUBL TABLET SL PRN (19:40)
[2020-08-05] MEDS ORDERED: ASPIRIN 81 MG CHEW TABLET PO ONE (19:40)
[2020-08-05] MEDS ORDERED: ISOVUE-370 76% 100ML VIAL As Ordered ONE (19:47)
--- NOTE | 2020-08-05 21:28 | REPVR ---
PROCEDURE INFORMATION: Exam: CTA Chest With Contrast Exam date and time: 08/05/2020 8:11 PM Age: 75 years old Clinical indication: Chest pain; Additional info: Central chest pain, ? HX of aneurysm TECHNIQUE: Imaging protocol: Computed tomographic angiography of the chest with contrast. 3D rendering (Not supervised by radiologist): MIP and/or 3D reconstructed images were created by the technologist. Radiation optimization: All CT scans at this facility use at least one of these dose optimization techniques: automated exposure control; mA and/or kV adjustment per patient size (includes targeted exams where dose is matched to clinical indication); or iterative reconstruction. Contrast material: ISOVUE 370; Contrast volume: 75 ml; Contrast route: INTRAVENOUS (IV); COMPARISON: CT ANGIO CHEST 03/28/2020 3:54 PM FINDINGS: Pulmonary arteries: There is opacification of the pulmonary arteries with no evidence of pulmonary embolus. Aorta: There is opacification of the aorta which appears intact. The aorta is tortuous and there is calcified plaque along the margins. Lungs: There is mild bibasilar atelectasis. Small calcified granuloma left lung. Pleural spaces: There is no evidence of pneumothorax or pleural effusion. Heart: Normal-sized heart with no pericardial effusion Lymph nodes: Unremarkable. No enlarged lymph nodes. Bones/joints: There is some osteophyte formation of the thoracic spine. Soft tissues: Unremarkable. IMPRESSION: The aorta is tortuous but appearing intact. Electronically signed by: Yogi Salcido On 08/05/2020 21:29:01 PM
[2020-08-05 22:19] LABS: CK-MB VALUE MASS < 1.0 NG/ML (<3.6); CPK CREATINE PHOSPHOKINASE 104 U/L (39-308); MB/CK RELATIVE INDEX 0.96 (< OR =4); TROPONIN I < 0.02 NG/ML (< 0.10)
--- NOTE | 2020-08-05 22:41 | ECGEPIP ---
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
--- NOTE | 2020-08-05 22:58 | ECGEPIP ---
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
[2020-08-05 23:15] VITALS: BP 136/62
== END 2020-08-05 23:23 | disposition home or self-care (01) ==
LOC: M ED 17:57
DX: M25.512 Pain in left shoulder (principal); R07.89 Other chest pain; I44.4 Left anterior fascicular block; I70.0 Atherosclerosis of aorta; I28.9 Disease of pulmonary vessels, unspecified; R91.8 Other nonspecific abnormal finding of lung field; R06.02 Shortness of breath; I25.10 Atherosclerotic heart disease of native coronary artery without angina pectoris; Z85.46 Personal history of malignant neoplasm of prostate; Z86.79 Personal history of other diseases of the circulatory system; Q25.46 Tortuous aortic arch
CPT/HCPCS: 71045; 71275; 80048; 80076; 82550; 82553; 83690; 84439; 84443; 84484; 85025; 85610; 85730; 93005; 93041; 94760; 99285; Q9967

== ENCOUNTER → 2020-09-30 | Outpatient (REF) | payer MEDICARE, OTHER ==
[~2020-09-30] MED LIST changes: +MELO15TA28
[2020-09-30 14:39] LABS: BLOOD UREA NITROGEN 29 MG/DL (7-18); CARBON DIOXIDE LEVEL 28 MEQ/L (21-32); CHLORIDE LEVEL 108 MEQ/L (98-107); CREATININE FOR GFR 0.91 MG/DL (0.70-1.30); GLOMERULAR FILTRATION RATE > 60.0 (>42); GLUCOSE, FASTING 90 MG/DL (70-100); POTASSIUM SERUM 4.7 MEQ/L (3.5-5.1); SODIUM LEVEL 142 MEQ/L (136-145)
[2020-09-30 14:40] LABS: ALBUMIN 3.7 GM/DL (3.2-5.2); ALT/SGPT 33 U/L (12-78); BILIRUBIN,TOTAL 0.6 MG/DL (0.2-1.0); CALCIUM LEVEL 9.2 MG/DL (8.8-10.2); TOTAL PROTEIN 7.1 GM/DL (6.4-8.2)
== END ==
LOC: M SFHCADAM 11:59
PROVIDERS: ATTEND Family Medicine
DX: R41.3 Other amnesia (principal)
CPT/HCPCS: 80053; 84443; 86780; G0463

== ENCOUNTER → 2020-10-11 | Outpatient (CLI) | payer MEDICARE, OTHER ==
--- NOTE | 2020-10-11 12:05 | REP ---
INDICATION: RIGHT FLANK PAIN. COMPARISON: None. FINDINGS: Multiple ultrasonographic images of the right kidney show the right kidney to measure 11 x 6 x 5.4 cm. The renal cortical echotexture is unremarkable. There are no solid masses. In the superior pole there is a round 7.2 x 6.4 x 4.6 cm sized anechoic structure which exhibits posterior wall enhancement and increased through transmission. There are no septations or mural nodules. In the interpolar region there is a tiny 8 mm sized anechoic structure which exhibits posterior wall enhancement and increased through transmission. In the inferior pole there is a 3 x 2.5 x 2.8 cm sized anechoic structure which exhibits posterior wall enhancement and increased through transmission and is without septations or mural nodules. There is good corticomedullary differentiation. There is no hydronephrosis. There are no perinephric fluid collections. Multiple ultrasonographic images of the left kidney show the left kidney to measure 11.3 x 6.1 by 6.6 cm. The renal cortical echotexture is unremarkable. There are no masses. Within the medial interpolar region there is a 7 mm echogenic focus which casts and acoustic shadow. There is good corticomedullary differentiation. There is no hydronephrosis. There are no perinephric fluid collections. IMPRESSION: 1. Multiple right renal cysts having a Bosniak class 1 appearance. The large cyst arising from the superior pole was imaged on prior CT scan of the chest 08/05/2020 and showed no abnormal enhancement. 2. Evidence of a nonobstructing left nephrolith as described above this was not imaged on the prior CT scan. <Electronically signed by Gino Guidry > 10/11/20 0839
== END ==
LOC: M RAD 10:49
PROVIDERS: ATTEND Family Medicine
DX: R10.9 Unspecified abdominal pain (principal); N28.1 Cyst of kidney, acquired

== ENCOUNTER → 2020-12-27 | Outpatient (CLI) | payer MEDICARE, OTHER ==
--- NOTE | 2020-12-27 12:54 | REP ---
INDICATION: Assess stenosis TECHNIQUE: Carotid ultrasonography was performed bilaterally FINDINGS: Right: CCA systolic: 78.3 centimeters/second CCA diastolic: 15.5 centimeters/second ICA systolic: 44.0 centimeters/second ICA diastolic: 15.5 centimeters/second ICA CCA ratio: 0.56 Left: CCA systolic: 83.5 centimeters/second CCA diastolic: 16.7 centimeters/second ICA systolic: 51.4 centimeters/second ICA diastolic: 8.36 centimeters/second ICA CCA ratio: 0.62 Vertebral artery: Right: Antegrade flow left: Antegrade flow A small to moderate amount of echogenic material is seen along the carotid arterial larson none of which casts and acoustic shadow IMPRESSION: According to the SRU criteria there is less than 50% stenosis of the internal carotid artery bilaterally. This is secondary to noncalcified atheromatous plaque formation. <Electronically signed by Gino Guidry > 12/27/20 [id number]
== END ==
LOC: M RAD 11:59
PROVIDERS: ATTEND Physician Assistant
DX: I65.23 Occlusion and stenosis of bilateral carotid arteries (principal)

== ENCOUNTER → 2021-01-30 | Outpatient (REF) | payer MEDICARE, OTHER | LOC: M SFHCADAM 16:02 | PROVIDERS: ATTEND Family Medicine | DX: R10.9 Unspecified abdominal pain (principal) | CPT/HCPCS: 87088; 87186; G0463 ==

== ENCOUNTER → 2021-03-06 | Outpatient (REF) | payer MEDICARE, OTHER ==
[2021-03-06 17:46] LABS: APPEARANCE, URINE CLEAR (CLEAR); BACTERIA, URINE AUTO NEGATIVE (NEGATIVE); BILIRUBIN, URINE AUTO NEGATIVE (NEGATIVE); BLOOD, URINE BLOOD NEGATIVE (NEGATIVE); COLOR, URINE YELLOW (YELLOW); GLUCOSE, URINE (UA) AUTO NEGATIVE (NEGATIVE); KETONE, URINE AUTO NEGATIVE (NEGATIVE); LEUKOCYTE ESTERASE, URINE AUTO NEGATIVE (NEGATIVE); NITRITE, URINE AUTO NEGATIVE (NEGATIVE); PROTEIN, URINE AUTO NEGATIVE (NEGATIVE); RBC, URINE AUTO 1 /HPF (0-3); SPECIFIC GRAVITY URINE AUTO 1.019 (1.002-1.035); SQUAMOUS EPITHELIAL CELL UR AU 0 /HPF (0-6); UROBILINOGEN, URINE AUTO 0.2 mg/dL (0.0-2.0); WBC, URINE AUTO 3 /HPF (0-3)
== END ==
LOC: M SMT 16:56
PROVIDERS: ATTEND Nurse Practitioner Women's Health
DX: N39.0 Urinary tract infection, site not specified (principal)
CPT/HCPCS: 51798; 81001; 87088; 87186; G0463

== ENCOUNTER → 2021-03-10 | Outpatient (CLI) | payer MEDICARE, OTHER ==
--- NOTE | 2021-03-10 13:03 | REP ---
INDICATION: LT SHOULDER PAIN. COMPARISON: None. TECHNIQUE: Coronal oblique T1 and fat suppressed T2. Sagittal oblique fat suppressed T2. Axial [id number] and T2 FLASH. FINDINGS: There is moderate hypertrophic degenerative change seen involving the acromioclavicular joint. The acromion process is type 2 with a spur arising from the inferior surface at the AC joint. There is marked T2 hyper signal seen the supraspinatus tendon with marked irregularity of both sub bursal and articular surfaces. There is marked supraspinatus muscle atrophy. There is patchy T2 hyper signal seen throughout the subscapularis and infraspinatus tendons. There is coracohumeral and coracoacromial ligamentous thickening. There is asymmetric glenohumeral joint space narrowing with glenoid and humeral head marginal osteophytosis. There are numerous subchondral cysts seen in the glenoid and humeral head. Cysts are also seen in the superolateral humeral head subjacent to the insertion of the supraspinatus tendon. There is a complex glenohumeral joint effusion and a complex fluid collection in the subcoracoid recess. The biceps tendon resides within the bicipital groove. There is no evidence of a discernible anterior or superior labrum. There is evidence of a small posteroinferior labral remnant. IMPRESSION: 1. The supraspinatus tendon is torn with significant appearing partial full-thickness tears. 2. There is advanced subscapularis and infraspinatus tendinitis/tendinosis. 3. AC joint DJD with acromion process and ligamentous thickening as described above consistent with the clinical diagnosis of impingement syndrome. 4. 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 5. Complex joint effusion likely with loose intra-articular bodies. 6. Other findings as described above. <Electronically signed by Gino Guidry > 03/10/21 [id number]
== END ==
LOC: M PLAIMG 10:55
PROVIDERS: ATTEND Orthopaedic Surgery
DX: M25.512 Pain in left shoulder (principal); M25.412 Effusion, left shoulder; M19.012 Primary osteoarthritis, left shoulder; M75.112 Incomplete rotator cuff tear or rupture of left shoulder, not specified as traumatic; M77.8 Other enthesopathies, not elsewhere classified

== ENCOUNTER → 2021-03-11 | Outpatient (CLI) | payer MEDICARE, OTHER ==
--- NOTE | 2021-03-11 16:26 | REP ---
INDICATION: UTI'S W/ PELVIC PAIN H/O KIDNEY STONES. COMPARISON: None. TECHNIQUE: Standard helical technique without intravenous or oral bowel preparatory contrast administration FINDINGS: The lung bases are unchanged compared to the prior chest CT obtained 08/05/2020. The liver, gallbladder, spleen, pancreas, and adrenal glands are seen in limited fashion without contrast and showing no evidence of a gross abnormality. In the interpolar region of the left kidney there is an oval-shaped 6 mm size calcification. This is not causing obstructive phenomena. In the inferior pole of left kidney there is a round 2.3 cm sized low-density structure which has slightly higher than water density Hounsfield unit readings. In the superior pole of the right kidney there is a large round 6.9 cm sized low-density structure which has slightly higher than water density Hounsfield unit readings. In the inferior pole the right kidney there is a round 3 cm sized low-density structure which has slightly higher than water density Hounsfield unit readings. Limited evaluation of the abdominal aorta and para-aortic regions show calcific abdominal aortic atherosclerotic change and bilateral common iliac arterial ectasia with calcific atherosclerotic change. There is no evidence of para-aortic adenopathy. Limited evaluation of the bowel loops and the mesenteries show no gross abnormalities. There is no evidence of a mass or adenopathy. There is no evidence of free fluid or free air. Bone window technique throughout the examination shows rather advanced appearing chronic spinal degenerative changes and discogenic changes at multiple levels particularly affecting the lumbar spine seen with air densities in the L4-5 and L2-3 disc spaces consistent with vacuum phenomena from degenerative disc disease. IMPRESSION: 1. Bilateral renal cysts as described above. The large right renal cyst was seen on prior CT chest of 08/05/2020 and 03/28/2020 and is stable. 2. Other chronic changes and exam limitations as described above. <Electronically signed by Gino Guidry > 03/11/21 0498
== END ==
LOC: M RAD 14:54
PROVIDERS: ATTEND Nurse Practitioner Women's Health
DX: N39.0 Urinary tract infection, site not specified (principal); R10.2 Pelvic and perineal pain; Z87.442 Personal history of urinary calculi; N28.1 Cyst of kidney, acquired

== ENCOUNTER → 2021-03-19 | Outpatient (REF) | payer MEDICARE, OTHER ==
[2021-03-19 17:37] LABS: APPEARANCE, URINE CLEAR (CLEAR); BACTERIA, URINE AUTO NEGATIVE (NEGATIVE); BILIRUBIN, URINE AUTO NEGATIVE (NEGATIVE); BLOOD, URINE BLOOD NEGATIVE (NEGATIVE); COLOR, URINE YELLOW (YELLOW); GLUCOSE, URINE (UA) AUTO NEGATIVE (NEGATIVE); KETONE, URINE AUTO NEGATIVE (NEGATIVE); LEUKOCYTE ESTERASE, URINE AUTO NEGATIVE (NEGATIVE); MUCUS, URINE SMALL (NEGATIVE); NITRITE, URINE AUTO NEGATIVE (NEGATIVE); PROTEIN, URINE AUTO NEGATIVE (NEGATIVE); RBC, URINE AUTO 1 /HPF (0-3); SPECIFIC GRAVITY URINE AUTO 1.019 (1.002-1.035); SQUAMOUS EPITHELIAL CELL UR AU 0 /HPF (0-6); UROBILINOGEN, URINE AUTO 0.2 mg/dL (0.0-2.0); WBC, URINE AUTO 3 /HPF (0-3)
== END ==
LOC: M SMT 17:04
PROVIDERS: ATTEND Urology
DX: N30.00 Acute cystitis without hematuria (principal)
CPT/HCPCS: 81001; 87086; G0463

== ENCOUNTER → 2021-04-08 | Outpatient (REF) | payer MEDICARE, OTHER ==
[2021-04-08 12:51] LABS: BASO # 0.1 10^3/uL (0.0-0.2); EOS # 0.2 10^3/uL (0.0-0.5); HEMATOCRIT 46.4 % (42.0-52.0); HEMOGLOBIN 15.1 g/dl (13.5-17.5); LYMPH # 1.9 10^3/uL (1.5-5.0); LYMPH % 32.2 % (24.0-44.0); MEAN CORPUSCULAR HEMOGLOBIN 30.5 pg (27.0-33.0); MEAN CORPUSCULAR HGB CONC 32.5 g/dl (32.0-36.5); MEAN CORPUSCULAR VOLUME 93.7 fl (80.0-96.0); MONO # 0.6 10^3/uL (0.0-0.8); MONO % 10.8 % (2.0-8.0); NEUTROPHILS % 52.7 % (36.0-66.0); PLATELET COUNT, AUTOMATED 181 10^3/uL (150-450); RED BLOOD COUNT 4.95 10^6/uL (4.30-6.10); WHITE BLOOD COUNT 5.8 10^3/uL (4.0-10.0)
[2021-04-08 13:31] LABS: ALBUMIN 3.4 GM/DL (3.2-5.2); ALT/SGPT 34 U/L (12-78); BILIRUBIN,TOTAL 0.4 MG/DL (0.2-1.0); BLOOD UREA NITROGEN 26 MG/DL (7-18); CALCIUM LEVEL 9.1 MG/DL (8.8-10.2); CARBON DIOXIDE LEVEL 26 MEQ/L (21-32); CHLORIDE LEVEL 109 MEQ/L (98-107); CREATININE FOR GFR 0.86 MG/DL (0.70-1.30); GLOMERULAR FILTRATION RATE > 60.0 (>42); GLUCOSE, FASTING 169 MG/DL (70-100); POTASSIUM SERUM 4.3 MEQ/L (3.5-5.1); PROSTATIC SPECIFIC AG MONITOR < 0.01 NG/ML (< 4.00); SODIUM LEVEL 143 MEQ/L (136-145); TOTAL PROTEIN 6.3 GM/DL (6.4-8.2)
== END ==
LOC: M SFHCADAM 08:39
PROVIDERS: ATTEND Family Medicine
DX: Z85.46 Personal history of malignant neoplasm of prostate (principal); R05.9 Cough, unspecified

== ENCOUNTER → 2021-04-08 | Outpatient (CLI) | payer MEDICARE, OTHER ==
--- NOTE | 2021-04-08 09:31 | REP ---
INDICATION: COUGH COMPARISON: 08/05/2020 TECHNIQUE: PA and lateral. FINDINGS: The mediastinum and cardiac silhouette are normal. The lung wong demonstrate chronic appearing changes without acute consolidation, effusion, or pneumothorax. The skeletal structures are intact and normal. IMPRESSION: No acute cardiopulmonary process. <Electronically signed by Juma Cao > 04/08/21 [id number]
== END ==
LOC: M ADAMS 09:10
PROVIDERS: ATTEND Family Medicine
DX: R05.9 Cough, unspecified (principal); Z85.46 Personal history of malignant neoplasm of prostate

== ENCOUNTER → 2021-04-24 | Outpatient (REF) | payer MEDICARE, OTHER | LOC: M SFHCADAM 12:02 | PROVIDERS: ATTEND Family Medicine | DX: R06.00 Dyspnea, unspecified (principal); R60.9 Edema, unspecified | CPT/HCPCS: 80048; 83880; 85379; G0463 ==

== ENCOUNTER → 2021-06-04 | Outpatient (REF) | payer MEDICARE, OTHER ==
[2021-06-04 12:32] LABS: BASO # 0.1 10^3/uL (0.0-0.2); BASO % 0.7 % (0.0-1.0); EOS # 0.2 10^3/uL (0.0-0.5); EOS % 2.4 % (0.0-3.0); HEMATOCRIT 45.7 % (42.0-52.0); HEMOGLOBIN 14.6 g/dl (13.5-17.5); LYMPH # 1.9 10^3/uL (1.5-5.0); LYMPH % 21.8 % (24.0-44.0); MEAN CORPUSCULAR HEMOGLOBIN 29.6 pg (27.0-33.0); MEAN CORPUSCULAR HGB CONC 31.9 g/dl (32.0-36.5); MEAN CORPUSCULAR VOLUME 92.7 fl (80.0-96.0); MONO # 0.7 10^3/uL (0.0-0.8); NEUTROPHILS # 5.6 10^3/uL (1.5-8.5); PLATELET COUNT, AUTOMATED 394 10^3/uL (150-450); RED BLOOD COUNT 4.93 10^6/uL (4.30-6.10); WHITE BLOOD COUNT 8.5 10^3/uL (4.0-10.0)
[2021-06-04 12:49] LABS: BLOOD UREA NITROGEN 26 MG/DL (7-18); CALCIUM LEVEL 9.4 MG/DL (8.8-10.2); CARBON DIOXIDE LEVEL 28 MEQ/L (21-32); CHLORIDE LEVEL 106 MEQ/L (98-107); GLOMERULAR FILTRATION RATE > 60.0 (>42); GLUCOSE, FASTING 162 MG/DL (70-100); POTASSIUM SERUM 4.5 MEQ/L (3.5-5.1); SODIUM LEVEL 142 MEQ/L (136-145)
[2021-06-04 13:36] LABS: HEMOGLOBIN A1c 7.9 %
== END ==
LOC: M SFHCADAM 09:46
PROVIDERS: ATTEND Family Medicine
DX: R05.9 Cough, unspecified (principal); R73.9 Hyperglycemia, unspecified

== ENCOUNTER → 2021-06-04 | Outpatient (CLI) | payer MEDICARE, OTHER | LOC: M ADAMS 09:50 | PROVIDERS: ATTEND Family Medicine | DX: R05.9 Cough, unspecified (principal) ==

== ENCOUNTER → 2021-10-09 | Outpatient (CLI) | payer MEDICARE, OTHER | LOC: M PAIN 11:30 | PROVIDERS: ATTEND Nurse Practitioner Family | DX: M96.1 Postlaminectomy syndrome, not elsewhere classified (principal); Z85.46 Personal history of malignant neoplasm of prostate; G47.33 Obstructive sleep apnea (adult) (pediatric); I27.20 Pulmonary hypertension, unspecified; K64.8 Other hemorrhoids; I65.23 Occlusion and stenosis of bilateral carotid arteries; N28.1 Cyst of kidney, acquired; M54.50 Low back pain, unspecified; M25.519 Pain in unspecified shoulder; Z79.84 Long term (current) use of oral hypoglycemic drugs; Z79.82 Long term (current) use of aspirin; Z79.899 Other long term (current) drug therapy; Z96.651 Presence of right artificial knee joint ==

== ENCOUNTER → 2021-11-04 | Outpatient (REF) | payer MEDICARE, OTHER | LOC: M LAB REF 12:09 | PROVIDERS: ATTEND Student in an Organized Health Care Education/Training Program | DX: R30.0 Dysuria (principal) ==

== ENCOUNTER → 2021-11-22 | Outpatient (REF) | payer MEDICARE, OTHER | LOC: M WUC 18:36 | PROVIDERS: ATTEND Student in an Organized Health Care Education/Training Program | DX: R30.0 Dysuria (principal) ==

== ENCOUNTER → 2021-12-09 | Outpatient (CLI) | payer MEDICARE, OTHER | LOC: M PAIN 10:30 | PROVIDERS: ATTEND Nurse Practitioner Family | DX: M96.1 Postlaminectomy syndrome, not elsewhere classified (principal); E11.9 Type 2 diabetes mellitus without complications; G47.33 Obstructive sleep apnea (adult) (pediatric); Z79.82 Long term (current) use of aspirin; Z79.84 Long term (current) use of oral hypoglycemic drugs; Z79.899 Other long term (current) drug therapy ==

== ENCOUNTER → 2022-01-20 | Outpatient (REF) | payer MEDICARE, OTHER | LOC: M WUC 10:17 | PROVIDERS: ATTEND Physician Assistant | DX: R30.0 Dysuria (principal) ==

== ENCOUNTER → 2022-02-09 | Outpatient (REF) | payer MEDICARE, OTHER | LOC: M SFHCADAM 12:41 | PROVIDERS: ATTEND Family Medicine | DX: R05.1 Acute cough (principal) ==

== ENCOUNTER → 2022-03-24 | Outpatient (CLI) | payer MEDICARE, OTHER | LOC: M PLAIMG 09:15 | PROVIDERS: ATTEND Nurse Practitioner Women's Health | DX: N20.0 Calculus of kidney (principal); M47.9 Spondylosis, unspecified; I87.8 Other specified disorders of veins; M53.85 Other specified dorsopathies, thoracolumbar region ==

== ENCOUNTER → 2022-03-31 | Outpatient (REF) | payer MEDICARE, OTHER | LOC: M WUC 09:24 | PROVIDERS: ATTEND Physician Assistant | DX: R30.0 Dysuria (principal) ==

== ENCOUNTER → 2022-07-01 | Outpatient (REF) | payer MEDICARE, OTHER ==
[2022-07-01 16:16] LABS: BASO # 0.1 10^3/uL (0.0-0.2); BASO % 1.2 % (0.0-1.0); EOS # 0.1 10^3/uL (0.0-0.5); EOS % 2.3 % (0.0-3.0); HEMATOCRIT 45.3 % (42.0-52.0); HEMOGLOBIN 14.7 g/dl (13.5-17.5); LYMPH # 2.3 10^3/uL (1.5-5.0); LYMPH % 39.2 % (24.0-44.0); MEAN CORPUSCULAR HEMOGLOBIN 30.4 pg (27.0-33.0); MEAN CORPUSCULAR HGB CONC 32.5 g/dl (32.0-36.5); MEAN CORPUSCULAR VOLUME 93.8 fl (80.0-96.0); MONO # 0.7 10^3/uL (0.0-0.8); MONO % 11.4 % (2.0-8.0); NEUTROPHILS # 2.7 10^3/uL (1.5-8.5); NEUTROPHILS % 45.6 % (36.0-66.0); PLATELET COUNT, AUTOMATED 207 10^3/uL (150-450); RED BLOOD COUNT 4.83 10^6/uL (4.30-6.10)
[2022-07-01 16:45] LABS: ALBUMIN 3.7 G/DL (3.2-5.2); ALKALINE PHOSPHATASE 100 U/L (46-116); ALT/SGPT 27 U/L (7.0-40); AST/SGOT 22 U/L (<34); BILIRUBIN,TOTAL 0.5 MG/DL (0.3-1.2); BLOOD UREA NITROGEN 34 MG/DL (9-23); CALCIUM LEVEL 9.5 MG/DL (8.3-10.6); CARBON DIOXIDE LEVEL 30 MMOL/L (20-31); CHLORIDE LEVEL 107 MMOL/L (98-107); CREATININE FOR GFR 0.93 MG/DL (0.70-1.30); GLOMERULAR FILTRATION RATE > 60.0 (>42); GLUCOSE, FASTING 92 MG/DL (74-106); POTASSIUM SERUM 4.9 MMOL/L (3.5-5.1); SODIUM LEVEL 142 MMOL/L (136-145); TOTAL PROTEIN 6.3 G/DL (5.7-8.2)
== END ==
LOC: M SFHCADAM 13:45
PROVIDERS: ATTEND Family Medicine
DX: Z01.818 Encounter for other preprocedural examination (principal); E11.69 Type 2 diabetes mellitus with other specified complication

== ENCOUNTER → 2022-07-09 | Outpatient (CLI) | payer MEDICARE, OTHER ==
[~2022-07-09] MED LIST changes: +B6/F1CAP PO; +CINN500C2 PO; +ECOT81TA5 PO; +METF10004 PO; +VITMTA PO
== END ==
LOC: M LABSMTC 08:58
PROVIDERS: ATTEND Anesthesiology
DX: Z01.812 Encounter for preprocedural laboratory examination (principal); Z20.822 Contact with and (suspected) exposure to COVID-19

== ENCOUNTER 2022-07-13 10:45 | Day surgery (SDC) | payer MEDICARE, OTHER ==
[~2022-07-13] VITALS: Ht 177.8 cm; Wt 103.5 kg
[~2022-07-13 10:45] MED LIST changes: +BSS IRRIG/VANCO(10MG)/TOBRA(5MG)/EPINEPH(1:1000-0.5CC)500ML BAG-ORONLY IR ONE; +CEFUROXIME 1MG/0.1ML INTRACAMERAL INJ As Ordered ONE; -CINN500C2 PO; +CYCLOPENTOLATE 1% OPHTH SOLN 2ML BTL OD SCH; +LIDOCAINE 1% SDV 5ML VIAL As Ordered ONE; +LIDOCAINE 3.5 % 1ML OPHTH TOPICAL GEL OU ONE; +MIDAZOLAM INJ 2MG/2ML VIAL As Ordered ONE; +OFLOXACIN 0.3 % (OCUFLOX) OPTH SOL 5ML OD ONE; +PHENYLEPHRINE 10% OPHTH SOL 5ML OD PRN; +PHENYLEPHRINE 2.5% OPHTH SOL 2ML OD SCH; +TROPICAMIDE 1% OPHTH SOLN 15ML OD SCH; +fentaNYL 100 MCG/2 ML INJECTION As Ordered ONE
[2022-07-13] MEDS ORDERED: CINN500C2 PO (11:34)
[2022-07-13 12:30] VITALS: BP 140/65
== END 2022-07-13 12:35 | disposition home or self-care (01) ==
LOC: M SDC 10:45
PROVIDERS: ATTEND Ophthalmology
DX: H25.11 Age-related nuclear cataract, right eye (principal); E11.9 Type 2 diabetes mellitus without complications; G47.30 Sleep apnea, unspecified; Z85.46 Personal history of malignant neoplasm of prostate; Z79.84 Long term (current) use of oral hypoglycemic drugs; Z79.899 Other long term (current) drug therapy
CPT/HCPCS: 66984; J0697; J2250; J3010; V2632

== ENCOUNTER 2022-07-27 12:35 | Day surgery (SDC) | payer MEDICARE, OTHER ==
[~2022-07-27] VITALS: Ht 177.8 cm; Wt 102.1 kg
[~2022-07-27 12:35] MED LIST changes: +ACETYLCHOLINE OPHTH SOLN 1% 2ML (MIOCHOL-E) As Ordered ONE; +CINN500C2 PO; -CYCLOPENTOLATE 1% OPHTH SOLN 2ML BTL OD SCH; +CYCLOPENTOLATE 1% OPHTH SOLN 2ML BTL OS SCH; -MIDAZOLAM INJ 2MG/2ML VIAL As Ordered ONE; -OFLOXACIN 0.3 % (OCUFLOX) OPTH SOL 5ML OD ONE; +OFLOXACIN 0.3 % (OCUFLOX) OPTH SOL 5ML OS ONE; -PHENYLEPHRINE 10% OPHTH SOL 5ML OD PRN; +PHENYLEPHRINE 10% OPHTH SOL 5ML OS PRN; -PHENYLEPHRINE 2.5% OPHTH SOL 2ML OD SCH; +PHENYLEPHRINE 2.5% OPHTH SOL 2ML OS SCH; -TROPICAMIDE 1% OPHTH SOLN 15ML OD SCH; +TROPICAMIDE 1% OPHTH SOLN 15ML OS SCH; -fentaNYL 100 MCG/2 ML INJECTION As Ordered ONE
[2022-07-27] MEDS ORDERED: MIDAZOLAM INJ 2MG/2ML VIAL As Ordered ONE (13:04)
[2022-07-27] MEDS ORDERED: fentaNYL 100 MCG/2 ML INJECTION As Ordered ONE (13:04)
[2022-07-27 14:40] VITALS: BP 152/71
== END 2022-07-27 14:45 | disposition home or self-care (01) ==
LOC: M SDC 12:35
PROVIDERS: ATTEND Ophthalmology
DX: H25.12 Age-related nuclear cataract, left eye (principal); E11.9 Type 2 diabetes mellitus without complications; G47.30 Sleep apnea, unspecified; Z85.46 Personal history of malignant neoplasm of prostate; Z87.442 Personal history of urinary calculi; Z79.899 Other long term (current) drug therapy; Z79.84 Long term (current) use of oral hypoglycemic drugs
CPT/HCPCS: 66984; J0697; J2250; J3010; V2632

== ENCOUNTER → 2022-09-22 | Outpatient (CLI) | payer MEDICARE, OTHER ==
[~2022-09-22] MED LIST changes: -ACETYLCHOLINE OPHTH SOLN 1% 2ML (MIOCHOL-E) As Ordered ONE; -BSS IRRIG/VANCO(10MG)/TOBRA(5MG)/EPINEPH(1:1000-0.5CC)500ML BAG-ORONLY IR ONE; -CEFUROXIME 1MG/0.1ML INTRACAMERAL INJ As Ordered ONE; -CYCLOPENTOLATE 1% OPHTH SOLN 2ML BTL OS SCH; -LIDOCAINE 1% SDV 5ML VIAL As Ordered ONE; -LIDOCAINE 3.5 % 1ML OPHTH TOPICAL GEL OU ONE; -OFLOXACIN 0.3 % (OCUFLOX) OPTH SOL 5ML OS ONE; -PHENYLEPHRINE 10% OPHTH SOL 5ML OS PRN; -PHENYLEPHRINE 2.5% OPHTH SOL 2ML OS SCH; -TROPICAMIDE 1% OPHTH SOLN 15ML OS SCH
== END ==
LOC: M PLAIMG 13:01
PROVIDERS: ATTEND Physician Assistant
DX: N20.0 Calculus of kidney (principal); M47.816 Spondylosis without myelopathy or radiculopathy, lumbar region; Z85.46 Personal history of malignant neoplasm of prostate

== ENCOUNTER → 2022-10-21 | Outpatient (CLI) | payer MEDICARE, OTHER | LOC: M PLAIMG 12:50 | PROVIDERS: ATTEND Physician Assistant | DX: N20.0 Calculus of kidney (principal); N28.1 Cyst of kidney, acquired ==

== ENCOUNTER 2022-11-03 12:05 | Emergency (ER) | payer MEDICARE, OTHER ==
[~2022-11-03] VITALS: Ht 177.8 cm; Wt 103.4 kg
[2022-11-03] MEDS ORDERED: NITROGLYCERIN 0.4MG SUBL TABLET SL STA (13:02)
[2022-11-03 13:03] LABS: BASO # 0.1 10^3/uL (0.0-0.2); EOS # 0.1 10^3/uL (0.0-0.5); EOS % 1.8 % (0.0-3.0); HEMATOCRIT 46.9 % (42.0-52.0); HEMOGLOBIN 15.3 g/dl (13.5-17.5); LYMPH % 33.6 % (24.0-44.0); MEAN CORPUSCULAR HEMOGLOBIN 30.2 pg (27.0-33.0); MEAN CORPUSCULAR HGB CONC 32.6 g/dl (32.0-36.5); MEAN CORPUSCULAR VOLUME 92.7 fl (80.0-96.0); MONO # 0.7 10^3/uL (0.0-0.8); MONO % 11.1 % (2.0-8.0); NEUTROPHILS # 3.1 10^3/uL (1.5-8.5); NEUTROPHILS % 52.3 % (36.0-66.0); PLATELET COUNT, AUTOMATED 215 10^3/uL (150-450); RED BLOOD COUNT 5.06 10^6/uL (4.30-6.10)
[2022-11-03] MEDS ORDERED: ASPIRIN 81MG CHEW TABLET PO ONE (13:05)
[2022-11-03 13:37] LABS: BLOOD UREA NITROGEN 33 MG/DL (9-23); CALCIUM LEVEL 9.4 MG/DL (8.3-10.6); CARBON DIOXIDE LEVEL 29 MMOL/L (20-31); CHLORIDE LEVEL 107 MMOL/L (98-107); CK-MB VALUE MASS < 1.0 NG/ML (<3.6); CREATININE FOR GFR 0.83 MG/DL (0.70-1.30); GLOMERULAR FILTRATION RATE > 60.0 (>42); GLUCOSE, FASTING 88 MG/DL (74-106); POTASSIUM SERUM 4.3 MMOL/L (3.5-5.1); SODIUM LEVEL 143 MMOL/L (136-145)
[2022-11-03 13:41] LABS: CPK CREATINE PHOSPHOKINASE 72 U/L (46-171); MB/CK RELATIVE INDEX 1.38 (< OR =4)
[2022-11-03] MEDS ORDERED: ISOVUE-370 76% 100ML VIAL As Ordered ONE (13:47)
[2022-11-03 13:52] LABS: ALBUMIN 2.7 G/DL (3.2-5.2); BILIRUBIN,DIRECT 0.1 MG/DL (<0.4); BILIRUBIN,TOTAL 0.5 MG/DL (0.3-1.2); TOTAL PROTEIN 4.8 G/DL (5.7-8.2)
[2022-11-03 13:53] LABS: THYROID STIMULATING HORMONE 0.555 uIU/ML (0.55-4.78)
[2022-11-03 13:54] LABS: FREE T4 1.19 NG/DL (0.89-1.76)
[2022-11-03 14:09] LABS: RSV AMPLIFICATION NEGATIVE (NEGATIVE)
[2022-11-03 14:41] LABS: CK-MB VALUE MASS < 1.0 NG/ML (<3.6)
[2022-11-03 14:42] LABS: CPK CREATINE PHOSPHOKINASE 62 U/L (46-171); MB/CK RELATIVE INDEX 1.61 (< OR =4)
[2022-11-03 16:21] LABS: CK-MB VALUE MASS < 1.0 NG/ML (<3.6)
[2022-11-03 16:27] LABS: CPK CREATINE PHOSPHOKINASE 67 U/L (46-171); MB/CK RELATIVE INDEX 1.49 (< OR =4)
[2022-11-03 16:30] VITALS: O2SAT 94
[2022-11-03 16:45] VITALS: BP 130/63; TEMP 95.9
== END 2022-11-03 16:52 | disposition home or self-care (01) ==
LOC: M ED 12:05
DX: R07.9 Chest pain, unspecified (principal); R06.02 Shortness of breath; I70.0 Atherosclerosis of aorta; I51.7 Cardiomegaly; E11.9 Type 2 diabetes mellitus without complications; Z79.82 Long term (current) use of aspirin; Z79.84 Long term (current) use of oral hypoglycemic drugs; Z79.899 Other long term (current) drug therapy
CPT/HCPCS: 71045; 71275; 80048; 80076; 82550; 82553; 83690; 83880; 84439; 84443; 84484; 85025; 87631; 93005; 93041; 94760; 99285; Q9967

== ENCOUNTER → 2023-04-01 | Outpatient (REF) | payer MEDICARE, OTHER | LOC: M LAB REF 09:33 | PROVIDERS: ATTEND Student in an Organized Health Care Education/Training Program | DX: R30.0 Dysuria (principal) ==

== ENCOUNTER → 2023-05-07 | Outpatient (REF) | payer MEDICARE, OTHER ==
[2023-05-07 17:47] LABS: BASO % 0.6 % (0.0-1.0); EOS # 0.1 10^3/uL (0.0-0.5); HEMATOCRIT 44.2 % (42.0-52.0); HEMOGLOBIN 14.4 g/dl (13.5-17.5); LYMPH # 2.6 10^3/uL (1.5-5.0); LYMPH % 39.3 % (24.0-44.0); MEAN CORPUSCULAR HEMOGLOBIN 30.6 pg (27.0-33.0); MEAN CORPUSCULAR HGB CONC 32.6 g/dl (32.0-36.5); MEAN CORPUSCULAR VOLUME 93.8 fl (80.0-96.0); MONO # 0.6 10^3/uL (0.0-0.8); MONO % 8.6 % (2.0-8.0); NEUTROPHILS # 3.3 10^3/uL (1.5-8.5); NEUTROPHILS % 49.2 % (36.0-66.0); PLATELET COUNT, AUTOMATED 220 10^3/uL (150-450); RED BLOOD COUNT 4.71 10^6/uL (4.30-6.10); WHITE BLOOD COUNT 6.6 10^3/uL (4.0-10.0)
[2023-05-07 18:01] LABS: ALBUMIN 3.5 G/DL (3.2-5.2); ALKALINE PHOSPHATASE 98 U/L (46-116); ALT/SGPT 31 U/L (7.0-40); AST/SGOT 22 U/L (<34); BILIRUBIN,TOTAL 0.4 MG/DL (0.3-1.2); BLOOD UREA NITROGEN 29 MG/DL (9-23); CALCIUM LEVEL 9.3 MG/DL (8.3-10.6); CARBON DIOXIDE LEVEL 28 MMOL/L (20-31); CHLORIDE LEVEL 110 MMOL/L (98-107); CHOLESTEROL LEVEL 148 MG/DL (<200); CHOLESTEROL RISK RATIO 3.31 (<5); CREATININE FOR GFR 0.85 MG/DL (0.70-1.30); GLOMERULAR FILTRATION RATE > 60.0 (>42); GLUCOSE, FASTING 83 MG/DL (74-106); HDL CHOLESTEROL 44.6 MG/DL (>40); LDL CHOLESTEROL 65.8 MG/DL (<100); NON-HDL-C 103.4 MG/DL; POTASSIUM SERUM 5.3 MMOL/L (3.5-5.1); SODIUM LEVEL 145 MMOL/L (136-145); THYROID STIMULATING HORMONE 1.171 uIU/ML (0.55-4.78); TOTAL PROTEIN 6.1 G/DL (5.7-8.2); TRIGLYCERIDES LEVEL 188 MG/DL (<150)
[2023-05-07 18:03] LABS: VITAMIN B12 LEVEL 561 PG/ML (211-911)
== END ==
LOC: M SFHCADAM 12:22
PROVIDERS: ATTEND Family Medicine
DX: Z00.00 Encounter for general adult medical examination without abnormal findings (principal); E11.69 Type 2 diabetes mellitus with other specified complication

== ENCOUNTER → 2023-06-01 | Outpatient (REF) | payer MEDICARE, OTHER ==
[2023-06-01 13:28] LABS: BLOOD UREA NITROGEN 27 MG/DL (9-23); CALCIUM LEVEL 9.3 MG/DL (8.3-10.6); CARBON DIOXIDE LEVEL 32 MMOL/L (20-31); CHLORIDE LEVEL 110 MMOL/L (98-107); CREATININE FOR GFR 0.88 MG/DL (0.70-1.30); GLOMERULAR FILTRATION RATE > 60.0 (>35); GLUCOSE, FASTING 114 MG/DL (74-106); SODIUM LEVEL 145 MMOL/L (136-145)
== END ==
LOC: M SFHCADAM 12:48
PROVIDERS: ATTEND Physician Assistant
DX: R42 Dizziness and giddiness (principal)

== ENCOUNTER → 2023-07-24 | Outpatient (REF) | payer MEDICARE, OTHER ==
[2023-07-24 21:02] LABS: RSV AMPLIFICATION NEGATIVE (NEGATIVE)
== END ==
LOC: M LAB REF 19:48
PROVIDERS: ATTEND Physician Assistant
DX: R68.83 Chills (without fever) (principal)

== ENCOUNTER → 2023-09-29 | Outpatient (CLI) | payer MEDICARE, OTHER | LOC: M RAD 10:29 | PROVIDERS: ATTEND Physician Assistant | DX: Z87.442 Personal history of urinary calculi (principal); Z85.46 Personal history of malignant neoplasm of prostate ==

== ENCOUNTER 2023-11-10 10:03 | Emergency (ER) | payer MEDICARE, OTHER ==
[~2023-11-10] VITALS: Ht 175.3 cm; Wt 106.0 kg
[2023-11-10 11:03] LABS: BASO % 0.8 % (0.0-1.0); EOS # 0.1 10^3/uL (0.0-0.5); EOS % 2.5 % (0.0-3.0); HEMATOCRIT 45.3 % (42.0-52.0); HEMOGLOBIN 15.2 g/dl (13.5-17.5); LYMPH # 1.7 10^3/uL (1.5-5.0); LYMPH % 36.2 % (24.0-44.0); MEAN CORPUSCULAR HEMOGLOBIN 31.3 pg (27.0-33.0); MEAN CORPUSCULAR HGB CONC 33.6 g/dl (32.0-36.5); MEAN CORPUSCULAR VOLUME 93.2 fl (80.0-96.0); MONO # 0.4 10^3/uL (0.0-0.8); MONO % 7.8 % (2.0-8.0); NEUTROPHILS # 2.5 10^3/uL (1.5-8.5); NEUTROPHILS % 52.5 % (36.0-66.0); PLATELET COUNT, AUTOMATED 198 10^3/uL (150-450); RED BLOOD COUNT 4.86 10^6/uL (4.30-6.10); WHITE BLOOD COUNT 4.7 10^3/uL (4.0-10.0)
[2023-11-10 11:24] LABS: LIPASE 42 U/L (12-53)
[2023-11-10 11:26] LABS: ALBUMIN 3.6 G/DL (3.2-5.2); ALKALINE PHOSPHATASE 96 U/L (46-116); ALT/SGPT 23 U/L (7.0-40); AST/SGOT 14 U/L (<34); BILIRUBIN,DIRECT 0.1 MG/DL (<0.4); BILIRUBIN,TOTAL 0.6 MG/DL (0.3-1.2); BLOOD UREA NITROGEN 34 MG/DL (9-23); CALCIUM LEVEL 8.6 MG/DL (8.3-10.6); CARBON DIOXIDE LEVEL 25 MMOL/L (20-31); CHLORIDE LEVEL 108 MMOL/L (98-107); CK-MB VALUE MASS 1.6 NG/ML (<3.6); CPK CREATINE PHOSPHOKINASE 69 U/L (46-171); CREATININE FOR GFR 0.85 MG/DL (0.70-1.30); GLOMERULAR FILTRATION RATE > 60.0 (>35); GLUCOSE, FASTING 187 MG/DL (74-106); MB/CK RELATIVE INDEX 2.31 (< OR =4); POTASSIUM SERUM 4.3 MMOL/L (3.5-5.1); SODIUM LEVEL 142 MMOL/L (136-145); TOTAL PROTEIN 6.2 G/DL (5.7-8.2)
[2023-11-10 11:28] LABS: FREE T4 1.09 NG/DL (0.89-1.76)
[2023-11-10 11:29] LABS: THYROID STIMULATING HORMONE 1.239 uIU/ML (0.55-4.78)
[2023-11-10 12:36] LABS: INR 1.02; PROTHROMBIN TIME 13.1 SECONDS (12.5-14.5)
[2023-11-10 12:39] LABS: CK-MB VALUE MASS 1.6 NG/ML (<3.6)
[2023-11-10 12:41] LABS: MB/CK RELATIVE INDEX 2.58 (< OR =4)
[2023-11-10 12:44] LABS: ALBUMIN 3.3 G/DL (3.2-5.2); BILIRUBIN,DIRECT 0.1 MG/DL (<0.4); BILIRUBIN,TOTAL 0.5 MG/DL (0.3-1.2); TOTAL PROTEIN 5.7 G/DL (5.7-8.2)
[2023-11-10] MEDS ORDERED: ISOVUE-370 76% 100ML VIAL As Ordered ONE (13:03)
[2023-11-10 15:00] VITALS: BP 109/57; TEMP 96.5; O2SAT 93
== END 2023-11-10 15:15 | disposition home or self-care (01) ==
LOC: M ED 10:03
DX: R07.9 Chest pain, unspecified (principal); K76.0 Fatty (change of) liver, not elsewhere classified; K57.30 Diverticulosis of large intestine without perforation or abscess without bleeding; I25.10 Atherosclerotic heart disease of native coronary artery without angina pectoris; I25.2 Old myocardial infarction; E11.9 Type 2 diabetes mellitus without complications; Z87.442 Personal history of urinary calculi; Z79.82 Long term (current) use of aspirin; Z79.84 Long term (current) use of oral hypoglycemic drugs; Z79.899 Other long term (current) drug therapy
CPT/HCPCS: 71045; 71260; 74177; 80048; 80076; 82550; 82553; 83690; 83880; 84439; 84443; 84484; 85025; 85610; 85730; 93005; 93041; 94760; 99285; Q9967

== ENCOUNTER → 2023-12-24 | Outpatient (REF) | payer MEDICARE, OTHER ==
[2023-12-24 13:05] LABS: BASO # 0.1 10^3/uL (0.0-0.2); BASO % 0.7 % (0.0-1.0); EOS # 0.1 10^3/uL (0.0-0.5); EOS % 1.7 % (0.0-3.0); HEMATOCRIT 45.5 % (42.0-52.0); HEMOGLOBIN 15.3 g/dl (13.5-17.5); LYMPH # 2.4 10^3/uL (1.5-5.0); LYMPH % 32.5 % (24.0-44.0); MEAN CORPUSCULAR HEMOGLOBIN 30.9 pg (27.0-33.0); MEAN CORPUSCULAR HGB CONC 33.6 g/dl (32.0-36.5); MEAN CORPUSCULAR VOLUME 91.9 fl (80.0-96.0); MONO # 0.9 10^3/uL (0.0-0.8); MONO % 11.4 % (2.0-8.0); NEUTROPHILS % 53.6 % (36.0-66.0); PLATELET COUNT, AUTOMATED 228 10^3/uL (150-450); RED BLOOD COUNT 4.95 10^6/uL (4.30-6.10); WHITE BLOOD COUNT 7.4 10^3/uL (4.0-10.0)
[2023-12-24 13:10] LABS: ALBUMIN 3.8 G/DL (3.2-5.2); ALKALINE PHOSPHATASE 102 U/L (46-116); ALT/SGPT 26 U/L (7.0-40); AST/SGOT 19 U/L (<34); BILIRUBIN,TOTAL 0.5 MG/DL (0.3-1.2); BLOOD UREA NITROGEN 28 MG/DL (9-23); CALCIUM LEVEL 9.6 MG/DL (8.3-10.6); CARBON DIOXIDE LEVEL 28 MMOL/L (20-31); CHLORIDE LEVEL 108 MMOL/L (98-107); CREATININE FOR GFR 0.86 MG/DL (0.70-1.30); GLOMERULAR FILTRATION RATE > 60.0 (>35); GLUCOSE, FASTING 87 MG/DL (74-106); POTASSIUM SERUM 4.6 MMOL/L (3.5-5.1); SODIUM LEVEL 142 MMOL/L (136-145); TOTAL PROTEIN 6.7 G/DL (5.7-8.2)
[2023-12-24 13:12] LABS: THYROID STIMULATING HORMONE 1.564 uIU/ML (0.55-4.78)
[2023-12-24 14:05] LABS: HEMOGLOBIN A1c 6.1 % (4.0-6.0)
== END ==
LOC: M SFHCADAM 10:06
PROVIDERS: ATTEND Family Medicine
DX: R42 Dizziness and giddiness (principal); R00.2 Palpitations; E11.69 Type 2 diabetes mellitus with other specified complication

== ENCOUNTER → 2024-02-08 | Outpatient (CLI) | payer MEDICARE, OTHER | LOC: M ADAMS 11:54 | PROVIDERS: ATTEND Family Medicine | DX: R06.09 Other forms of dyspnea (principal) ==

== ENCOUNTER → 2024-02-15 | Outpatient (CLI) | payer MEDICARE, OTHER | LOC: M CARPUL 12:42 | PROVIDERS: ATTEND Family Medicine | DX: R06.09 Other forms of dyspnea (principal); I35.1 Nonrheumatic aortic (valve) insufficiency ==

== ENCOUNTER → 2024-03-22 | Outpatient (REF) | payer MEDICARE, OTHER ==
[2024-03-22 18:10] LABS: APPEARANCE, URINE HAZY (CLEAR); BACTERIA, URINE AUTO NEGATIVE (NEGATIVE); BILIRUBIN, URINE AUTO NEGATIVE (NEGATIVE); BLOOD, URINE BLOOD NEGATIVE (NEGATIVE); CALCIUM OXALATE CRYSTALS MODERATE; COLOR, URINE YELLOW (YELLOW); GLUCOSE, URINE (UA) AUTO NEGATIVE (NEGATIVE); KETONE, URINE AUTO NEGATIVE (NEGATIVE); LEUKOCYTE ESTERASE, URINE AUTO NEGATIVE (NEGATIVE); MUCUS, URINE SMALL (NEGATIVE); NITRITE, URINE AUTO NEGATIVE (NEGATIVE); PROTEIN, URINE AUTO NEGATIVE (NEGATIVE); RBC, URINE AUTO 3 /HPF (0-3); SPECIFIC GRAVITY URINE AUTO 1.023 (1.002-1.035); SQUAMOUS EPITHELIAL CELL UR AU 0 /HPF (0-6); UROBILINOGEN, URINE AUTO 0.2 mg/dL (0.0-2.0); WBC, URINE AUTO 1 /HPF (0-3)
== END ==
LOC: M SMT 17:07
PROVIDERS: ATTEND Physician Assistant
DX: R30.0 Dysuria (principal)

== ENCOUNTER → 2024-05-24 | Outpatient (REF) | payer MEDICARE, OTHER | LOC: M LABDRWAD 17:18 | PROVIDERS: ATTEND Physician Assistant | DX: Z85.46 Personal history of malignant neoplasm of prostate (principal) ==

== ENCOUNTER 2024-06-16 18:18 | Emergency (ER) | payer MEDICARE, OTHER ==
[~2024-06-16] VITALS: Ht 177.8 cm; Wt 102.0 kg
[2024-06-16 18:32] VITALS: TEMP 97.2
[2024-06-16 18:46] LABS: BASO % 0.2 % (0.0-1.0); EOS # 0.2 10^3/uL (0.0-0.5); EOS % 2.2 % (0.0-3.0); HEMATOCRIT 47.5 % (42.0-52.0); HEMOGLOBIN 15.7 g/dl (13.5-17.5); LYMPH # 0.8 10^3/uL (1.5-5.0); LYMPH % 9.2 % (24.0-44.0); MEAN CORPUSCULAR HEMOGLOBIN 30.3 pg (27.0-33.0); MEAN CORPUSCULAR HGB CONC 33.1 g/dl (32.0-36.5); MEAN CORPUSCULAR VOLUME 91.7 fl (80.0-96.0); MONO # 0.5 10^3/uL (0.0-0.8); NEUTROPHILS # 7.1 10^3/uL (1.5-8.5); NEUTROPHILS % 82.2 % (36.0-66.0); PLATELET COUNT, AUTOMATED 195 10^3/uL (150-450); RED BLOOD COUNT 5.18 10^6/uL (4.30-6.10); WHITE BLOOD COUNT 8.7 10^3/uL (4.0-10.0)
[2024-06-16 19:13] LABS: BLOOD UREA NITROGEN 29 MG/DL (9-23); CALCIUM LEVEL 8.6 MG/DL (8.3-10.6); CARBON DIOXIDE LEVEL 29 MMOL/L (20-31); CHLORIDE LEVEL 105 MMOL/L (98-107); CK-MB VALUE MASS < 1.0 NG/ML (<3.6); CPK CREATINE PHOSPHOKINASE 52 U/L (46-171); CREATININE FOR GFR 0.77 MG/DL (0.70-1.30); GLOMERULAR FILTRATION RATE > 60.0 (>35); GLUCOSE, FASTING 109 MG/DL (74-106); MB/CK RELATIVE INDEX 1.92 (< OR =4); POTASSIUM SERUM 4.3 MMOL/L (3.5-5.1); SODIUM LEVEL 142 MMOL/L (136-145)
[2024-06-16] MEDS: PANTOPRAZOLE 40MG VIAL IV ONE (20:15)
[2024-06-16 20:27] LABS: CK-MB VALUE MASS < 1.0 NG/ML (<3.6)
[2024-06-16 20:31] LABS: CPK CREATINE PHOSPHOKINASE 48 U/L (46-171); MB/CK RELATIVE INDEX 2.08 (< OR =4)
[2024-06-16] MEDS ORDERED: ISOVUE-370 76% 100ML VIAL As Ordered ONE (20:36)
[2024-06-16] MEDS: MORPHINE 4 MG/ML 1ML VIAL IV PRN (20:36)
[2024-06-16 21:06] LABS: LIPASE 38 U/L (12-53)
[2024-06-16 22:33] LABS: ALBUMIN 3.5 G/DL (3.2-5.2); ALKALINE PHOSPHATASE 103 U/L (40-129); ALT/SGPT 24 U/L (7.0-40); AST/SGOT 19 U/L (<34); BILIRUBIN,DIRECT 0.2 MG/DL (<0.4); BILIRUBIN,TOTAL 0.7 MG/DL (0.3-1.2); TOTAL PROTEIN 6.5 G/DL (5.7-8.2)
[2024-06-17] MEDS ORDERED: PANT40TA29 PO (00:04)
[2024-06-17] MEDS: ALBUTEROL SULFATE 2.5MG/0.5ML INH NEB SOLN NEB ONE (00:31)
[2024-06-17 01:33] VITALS: O2SAT 92
[2024-06-17 02:00] VITALS: BP 107/62; O2SAT 90
== END 2024-06-17 02:14 | disposition home or self-care (01) ==
LOC: M ED 18:18
DX: K21.9 Gastro-esophageal reflux disease without esophagitis (principal); R07.89 Other chest pain; Z85.9 Personal history of malignant neoplasm, unspecified; K76.0 Fatty (change of) liver, not elsewhere classified; Z79.82 Long term (current) use of aspirin; Z79.899 Other long term (current) drug therapy
CPT/HCPCS: 71045; 71275; 74160; 80048; 80076; 82550; 82553; 83690; 83880; 84484; 85025; 93005; 94640; 96374; 96375; 99285; J2470; Q9967